=== PATIENT | female | born 1955 | race African-American/Black ===

== ENCOUNTER 2020-01-19 18:36 | Inpatient (IN) ==
[2020-01-19] MEDS ORDERED: DEXTROSE 50% 25 GM/50 ML VIAL IV PRN (21:19)
[2020-01-19] MEDS ORDERED: ONDANSETRON 4 MG/2 ML VIAL IV PRN (21:19)
[2020-01-19] MEDS ORDERED: GLUCAGON 1 MG VIAL IM PRN ×2 (21:19)
[2020-01-19] MEDS ORDERED: DEXTROSE 50% 25 GM/50 ML SYRINGE IV PRN (21:19)
[2020-01-19 22:15] LABS: ABG Base Excess -2.4 MMOL/L (-2.5-2.5); ABG HCO3 22.2 MMOL/L (20-26); ABG Oxygen Saturation 84.2 % (95-100); ABG PCO2 31.8 MM HG (35-48); ABG PH 7.429 (7.35-7.45); ABG PO2 48.7 MM HG (80-95); ABG TCO2 18.7 MMOL/L (23-27); Allen Test Positive
[2020-01-20 01:08] LABS: Basophils % 0.1 % (0.0-0.8); Hematocrit 33.5 VOL% (35.7-47.0); Hemoglobin 11.5 GM/DL (12.0-16.0); Immature Granulocytes % 0.7 %; Immature Granulocytes Absolute 0.05 #; Lymphocytes # 0.7 10*3/uL (1.4-4.0); Lymphocytes % 9.5 % (21.3-54.2); Mean Corpuscular HGB Conc 34.3 GM/DL (32-36); Mean Corpuscular Volume 86.8 FL (87-102); Mean Platelet Volume 11.2 FL (9.6-12.0); Monocytes % 2.5 % (1.7-12.7); Neutrophils % 87.2 % (38.7-73.9); Platelet Count 258 T/CUMM (130-400); Red Blood Count 3.86 MC/CUMM (3.8-5.5); Red Cell Distribution Width 12.9 % (9.3-17.3); White Blood Count 7.3 T/CUMM (4-12)
[2020-01-20 01:20] LABS: Alanine Aminotransferase 21 U/L (13-56); Albumin 2.7 G/DL (3.4-5.0); Alkaline Phosphatase 57 U/L (45-117); Aspartate Amino Transferase 36 U/L (0-37); Bilirubin,Total < 0.39 MG/DL (0.2-1.0); Blood Urea Nitrogen 23 MG/DL (7-18); Calcium 8.6 MG/DL (8.5-10.1); Estimated Glom Filtration Rate 37 ML/MIN; Glucose 334 MG/DL (74-106); Osmolality,Calculated 286.1 MOS/KG (273-304); Total Protein 7.9 G/DL (6.4-8.3)
[2020-01-20] MEDS: PIPERACILLIN/TAZOBACTAM 3,375 MG in SODIUM CHLORIDE 0.9% 100 ML IV SCH ×3 (01:21→16:05)
[2020-01-20] MEDS: PANTOPRAZOLE 40 MG VIAL IV SCH ×2 (01:21→21:31)
[2020-01-20] MEDS: SODIUM CHLORIDE 0.9% 1,000 ML IV SCH ×3 (01:21→17:09)
[2020-01-20] MEDS: INSULIN REGULAR 100 UNIT/ML SUBCUT SCH ×4 (03:20→17:59)
[2020-01-20 07:58] LABS: ABG Base Excess 0.6 MMOL/L (-2.5-2.5); ABG HCO3 23.9 MMOL/L (20-26); ABG Oxygen Saturation 39.9 % (95-100); ABG PH 7.416 (7.35-7.45); ABG TCO2 22.6 MMOL/L (23-27)
[2020-01-20] MEDS: ENOXAPARIN 40 MG/0.4 ML SYRINGE SUBCUT SCH (08:00)
[2020-01-20] MEDS ORDERED: LEVOFLOXACIN INJ 750 MG in PREMIX 1 EACH IV SCH (08:00)
[2020-01-20 08:03] LABS: ABG PO2 23.8 MM HG (80-95)
[2020-01-20 08:32] LABS: Alanine Aminotransferase 20 U/L (13-56); Albumin 2.6 G/DL (3.4-5.0); Alkaline Phosphatase 53 U/L (45-117); Aspartate Amino Transferase 41 U/L (0-37); Bilirubin,Total < 0.39 MG/DL (0.2-1.0); Blood Urea Nitrogen 18 MG/DL (7-18); Calcium 8.4 MG/DL (8.5-10.1); Estimated Glom Filtration Rate 44 ML/MIN; Glucose 214 MG/DL (74-106); Osmolality,Calculated 282.7 MOS/KG (273-304)
[2020-01-20 09:17] LABS: ABG Base Excess -3.2 MMOL/L (-2.5-2.5); ABG HCO3 21.7 MMOL/L (20-26); ABG Oxygen Saturation 95.7 % (95-100); ABG PCO2 46.4 MM HG (35-48); ABG PH 7.309 (7.35-7.45); ABG PO2 88.6 MM HG (80-95); ABG TCO2 20.9 MMOL/L (23-27)
[2020-01-20] MEDS: ZINC SULFATE 220 MG CAPSULE PER TUBE SCH (10:00)
[2020-01-20] MEDS: HYDROXYCHLOROQUINE 200 MG TABLET PER TUBE SCH ×2 (10:00→21:32)
[2020-01-20] MEDS ORDERED: propofoL 200 MG/20 ML VIAL IV ONE (10:29)
[2020-01-20] MEDS ORDERED: SUCCINYLCHOLINE 200 MG/10 ML VIAL ONE (10:29)
[2020-01-20] MEDS ORDERED: VECURONIUM 10 MG VIAL IV ONE (10:29)
[2020-01-20 11:11] LABS: Basophils % 0.1 % (0.0-0.8); Hematocrit 32.4 VOL% (35.7-47.0); Hemoglobin 10.8 GM/DL (12.0-16.0); Immature Granulocytes % 1.3 %; Immature Granulocytes Absolute 0.15 #; Lymphocytes # 0.6 10*3/uL (1.4-4.0); Lymphocytes % 5.4 % (21.3-54.2); Mean Corpuscular HGB Conc 33.3 GM/DL (32-36); Mean Corpuscular Volume 88.5 FL (87-102); Mean Platelet Volume 10.8 FL (9.6-12.0); Monocytes % 1.4 % (1.7-12.7); Neutrophils % 91.8 % (38.7-73.9); Platelet Count 279 T/CUMM (130-400); Red Blood Count 3.66 MC/CUMM (3.8-5.5); White Blood Count 11.4 T/CUMM (4-12)
[2020-01-20] MEDS: AZITHROMYCIN INJ 500 MG in SODIUM CHLORIDE 0.9% 250 ML IV SCH (11:35)
[2020-01-20 11:40] LABS: Band Neutrophils 2 % (0-10); Lymphocytes 3 % (20-55); Platelet Estimate Adequate; Segmented Neutrophils 94 % (50-85); Total Cells Counted 100
[2020-01-20 11:41] LABS: Hypochromasia Slight
[2020-01-20] MEDS: CISATRACURIUM 200 MG in SODIUM CHLORIDE 0.9% 180 ML IV SCH (12:26)
[2020-01-20] MEDS: METOPROLOL TARTRATE 25 MG TABLET PER TUBE SCH ×2 (12:26→21:31)
[2020-01-20] MEDS: lisinopriL 10 MG TABLET PER TUBE SCH (12:26)
[2020-01-20] MEDS: fentaNYL INJ 1,250 MCG in SODIUM CHLORIDE 0.9% 225 ML IV PRN (12:27)
[2020-01-20 15:01] LABS: Apearance,Urine CLEAR (Clear); Bacteria,Urine Occasional /HPF (Few); Bilirubin,Urine Negative (Negative); Blood, Urine Moderate mg/dL (Negative); Glucose,Urine (UA) >=500 mg/dL (Negative); Ketones,Urine 5 mg/dL (Negative); Mucus,Urine Occasional /LPF (Occasional); Nitrite,Urine Negative (Negative); Protein,Urine 30 MG/DL; RBC,Urine 13 /HPF (0-4); Squamous Epithelial Cell,Urine Occasional /HPF (0-10); Urine Color Yellow (Yellow); Urine Specific Gravity 1.014 (1.001-1.035); Urine Urobilinogen < 2.0 EU/DL (0.2-1.0); WBC,Urine 2 /HPF (0-6)
[2020-01-21] MEDS: PIPERACILLIN/TAZOBACTAM 3,375 MG in SODIUM CHLORIDE 0.9% 100 ML IV SCH ×3 (00:04→17:21)
[2020-01-21] MEDS: INSULIN REGULAR 100 UNIT/ML SUBCUT SCH ×4 (00:10→17:22)
[2020-01-21 03:45] LABS: Basophils % 0.1 % (0.0-0.8); Hematocrit 29.6 VOL% (35.7-47.0); Hemoglobin 9.7 GM/DL (12.0-16.0); Immature Granulocytes % 2.2 %; Immature Granulocytes Absolute 0.33 #; Lymphocytes # 1.1 10*3/uL (1.4-4.0); Mean Corpuscular HGB Conc 32.8 GM/DL (32-36); Mean Corpuscular Volume 89.4 FL (87-102); Mean Platelet Volume 10.3 FL (9.6-12.0); Monocytes % 1.4 % (1.7-12.7); Neutrophils % 89.3 % (38.7-73.9); Platelet Count 267 T/CUMM (130-400); Red Blood Count 3.31 MC/CUMM (3.8-5.5); Red Cell Distribution Width 13.3 % (9.3-17.3); White Blood Count 15.2 T/CUMM (4-12)
[2020-01-21 04:05] LABS: Band Neutrophils 13 % (0-10); Lymphocytes 8 % (20-55); Segmented Neutrophils 77 % (50-85)
[2020-01-21 04:06] LABS: Platelet Estimate Normal; Total Cells Counted 100
[2020-01-21 04:07] LABS: Calcium 7.4 MG/DL (8.5-10.1); Osmolality,Calculated 283.3 MOS/KG (273-304)
[2020-01-21 05:27] LABS: ABG Base Excess -3.7 MMOL/L (-2.5-2.5); ABG HCO3 21.2 MMOL/L (20-26); ABG Oxygen Saturation 87.7 % (95-100); ABG PCO2 37.2 MM HG (35-48); ABG PH 7.364 (7.35-7.45); ABG PO2 54.8 MM HG (80-95); ABG TCO2 19.1 MMOL/L (23-27); Allen Test Positive; Pt O2 Delivery Device Ventilator
[2020-01-21] MEDS: SODIUM CHLORIDE 0.9% 1,000 ML IV SCH ×3 (06:01→21:10)
[2020-01-21] MEDS: fentaNYL INJ 1,250 MCG in SODIUM CHLORIDE 0.9% 225 ML IV PRN ×2 (06:10→22:14)
[2020-01-21] MEDS: lisinopriL 10 MG TABLET PER TUBE SCH (08:18)
[2020-01-21] MEDS: METOPROLOL TARTRATE 25 MG TABLET PER TUBE SCH ×2 (08:18→22:15)
[2020-01-21] MEDS: HYDROXYCHLOROQUINE 200 MG TABLET PER TUBE SCH ×2 (08:19→22:15)
[2020-01-21] MEDS: ENOXAPARIN 40 MG/0.4 ML SYRINGE SUBCUT SCH (08:19)
[2020-01-21] MEDS: CISATRACURIUM 200 MG in SODIUM CHLORIDE 0.9% 180 ML IV SCH (12:05)
[2020-01-21] MEDS: AZITHROMYCIN INJ 500 MG in SODIUM CHLORIDE 0.9% 250 ML IV SCH (12:50)
[2020-01-21] MEDS ORDERED: POTASSIUM CHLORIDE RIDER 10 MEQ in PREMIX 1 EACH IV PRN (19:55)
[2020-01-21] MEDS ORDERED: MAGNESIUM SULF RIDER 4 GM in PREMIX 1 EACH IV PRN (19:56)
[2020-01-21] MEDS ORDERED: MAGNESIUM SULF RIDER 2 GM in PREMIX 1 EACH IV PRN (19:56)
[2020-01-21] MEDS: POTASSIUM CHLORIDE RIDER 20 MEQ in PREMIX 1 EACH IV PRN ×2 (21:45→23:50)
[2020-01-21] MEDS: PANTOPRAZOLE 40 MG VIAL IV SCH (22:14)
[2020-01-22] MEDS: INSULIN REGULAR 100 UNIT/ML SUBCUT SCH ×4 (02:06→18:43)
[2020-01-22] MEDS: PIPERACILLIN/TAZOBACTAM 3,375 MG in SODIUM CHLORIDE 0.9% 100 ML IV SCH ×3 (02:08→15:15)
[2020-01-22] MEDS: CISATRACURIUM 200 MG in SODIUM CHLORIDE 0.9% 180 ML IV SCH ×3 (04:20→12:56)
[2020-01-22 04:57] LABS: ABG Base Excess -6.6 MMOL/L (-2.5-2.5); ABG Oxygen Saturation 92.8 % (95-100); ABG PCO2 45.3 MM HG (35-48); ABG PH 7.262 (7.35-7.45); ABG PO2 69.6 MM HG (80-95); ABG TCO2 18.8 MMOL/L (23-27); Allen Test Positive; Pt O2 Delivery Device Ventilator
[2020-01-22 06:04] LABS: Basophils % 0.2 % (0.0-0.8); Eosinophils % 0.1 % (0.00-10.9); Hematocrit 31.2 VOL% (35.7-47.0); Hemoglobin 10.1 GM/DL (12.0-16.0); Immature Granulocytes % 1.9 %; Immature Granulocytes Absolute 0.34 #; Lymphocytes % 5.7 % (21.3-54.2); Mean Corpuscular HGB Conc 32.4 GM/DL (32-36); Mean Platelet Volume 10.6 FL (9.6-12.0); Monocytes % 1.5 % (1.7-12.7); Neutrophils % 90.6 % (38.7-73.9); Platelet Count 291 T/CUMM (130-400); Red Blood Count 3.43 MC/CUMM (3.8-5.5); Red Cell Distribution Width 14.4 % (9.3-17.3); White Blood Count 18.2 T/CUMM (4-12)
[2020-01-22] MEDS: SODIUM CHLORIDE 0.9% 1,000 ML IV SCH (06:04)
[2020-01-22 06:23] LABS: Calcium 7.7 MG/DL (8.5-10.1); Osmolality,Calculated 284.4 MOS/KG (273-304)
[2020-01-22] MEDS: fentaNYL INJ 1,250 MCG in SODIUM CHLORIDE 0.9% 225 ML IV PRN ×2 (07:06→16:15)
[2020-01-22] MEDS: ENOXAPARIN 40 MG/0.4 ML SYRINGE SUBCUT SCH (07:08)
[2020-01-22 08:31] LABS: Band Neutrophils 4 % (0-10); Lymphocytes 6 % (20-55); Metamyelocytes 1 %; Segmented Neutrophils 87 % (50-85); Total Cells Counted 100
[2020-01-22 08:32] LABS: Burr Cells 1+; Hypochromasia Slight; Platelet Estimate Normal; Polychromasia Slight
[2020-01-22] MEDS: METOPROLOL TARTRATE 25 MG TABLET PER TUBE SCH (08:33)
[2020-01-22] MEDS: ZINC SULFATE 220 MG CAPSULE PER TUBE SCH (08:34)
[2020-01-22] MEDS: HYDROXYCHLOROQUINE 200 MG TABLET PER TUBE SCH ×2 (08:34→20:34)
[2020-01-22] MEDS ORDERED: DEXTROSE 50% 25 GM/50 ML VIAL IV PRN (11:25)
[2020-01-22] MEDS ORDERED: GLUCAGON 1 MG VIAL IM PRN (11:25)
[2020-01-22] MEDS: AZITHROMYCIN INJ 500 MG in SODIUM CHLORIDE 0.9% 250 ML IV SCH (12:28)
[2020-01-22] MEDS: VANCOMYCIN INJ 1,250 MG in SODIUM CHLORIDE 0.9% 250 ML IV SCH (14:17)
[2020-01-22] MEDS: methylPREDNISolone SOD SUC 40 MG/1 ML VIAL IV SCH (14:17)
[2020-01-22] MEDS ORDERED: METOPROLOL TARTRATE 5 MG/5 ML VIAL IV ONE (15:09)
[2020-01-22] MEDS: METOPROLOL TARTRATE 50 MG TABLET PER TUBE SCH (20:33)
[2020-01-22] MEDS: PANTOPRAZOLE 40 MG VIAL IV SCH (20:34)
[2020-01-23] MEDS: PIPERACILLIN/TAZOBACTAM 3,375 MG in SODIUM CHLORIDE 0.9% 100 ML IV SCH ×4 (00:25→23:11)
[2020-01-23] MEDS: INSULIN REGULAR 100 UNIT/ML SUBCUT SCH ×4 (00:35→18:08)
[2020-01-23] MEDS: fentaNYL INJ 1,250 MCG in SODIUM CHLORIDE 0.9% 225 ML IV PRN ×3 (01:06→16:49)
[2020-01-23] MEDS: methylPREDNISolone SOD SUC 40 MG/1 ML VIAL IV SCH ×2 (01:12→14:32)
[2020-01-23 05:35] LABS: ABG Base Excess -7.2 MMOL/L (-2.5-2.5); ABG HCO3 18.6 MMOL/L (20-26); ABG Oxygen Saturation 98.3 % (95-100); ABG PCO2 57.4 MM HG (35-48); ABG TCO2 20.1 MMOL/L (23-27)
[2020-01-23 05:37] LABS: ABG PH 7.189 (7.35-7.45)
[2020-01-23] MEDS: CISATRACURIUM 200 MG in SODIUM CHLORIDE 0.9% 180 ML IV SCH ×2 (05:50→12:54)
[2020-01-23 06:07] LABS: Basophils % 0.2 % (0.0-0.8); Hematocrit 30.2 VOL% (35.7-47.0); Hemoglobin 9.7 GM/DL (12.0-16.0); Immature Granulocytes % 2.7 %; Immature Granulocytes Absolute 0.36 #; Lymphocytes # 0.5 10*3/uL (1.4-4.0); Lymphocytes % 3.6 % (21.3-54.2); Mean Corpuscular HGB Conc 32.1 GM/DL (32-36); Mean Corpuscular Volume 92.1 FL (87-102); Mean Platelet Volume 10.1 FL (9.6-12.0); Monocytes % 1.4 % (1.7-12.7); Neutrophils % 92.1 % (38.7-73.9); Platelet Count 231 T/CUMM (130-400); Red Blood Count 3.28 MC/CUMM (3.8-5.5); White Blood Count 13.2 T/CUMM (4-12)
[2020-01-23 06:17] LABS: Calcium 7.6 MG/DL (8.5-10.1)
[2020-01-23] MEDS: VANCOMYCIN INJ 1,250 MG in SODIUM CHLORIDE 0.9% 250 ML IV SCH (06:35)
[2020-01-23] MEDS: ENOXAPARIN 40 MG/0.4 ML SYRINGE SUBCUT SCH (07:05)
[2020-01-23 08:13] LABS: Band Neutrophils 4 % (0-10); Lymphocytes 1 % (20-55); Nucleated Red Blood Cells 1 (0-5); Ovalocytes Few; Segmented Neutrophils 94 % (50-85); Total Cells Counted 100
[2020-01-23 08:14] LABS: Platelet Estimate Normal; Polychromasia Few
[2020-01-23] MEDS: HYDROXYCHLOROQUINE 200 MG TABLET PER TUBE SCH ×2 (08:35→20:13)
[2020-01-23] MEDS: METOPROLOL TARTRATE 50 MG TABLET PER TUBE SCH ×2 (08:35→20:13)
[2020-01-23] MEDS ORDERED: SODIUM BICARBONATE 50 MEQ/50 ML VIAL IV ONE ×2 (09:14→09:16)
[2020-01-23] MEDS: AZITHROMYCIN INJ 500 MG in SODIUM CHLORIDE 0.9% 250 ML IV SCH (14:32)
[2020-01-23] MEDS: INSULIN GLARGINE 100 UNIT/ML SUBCUT SCH ×2 (18:07→20:13)
[2020-01-23] MEDS: POTASSIUM CHLORIDE RIDER 20 MEQ in PREMIX 1 EACH IV PRN (20:16)
[2020-01-23] MEDS: PANTOPRAZOLE 40 MG VIAL IV SCH (22:55)
[2020-01-24] MEDS: methylPREDNISolone SOD SUC 40 MG/1 ML VIAL IV SCH ×3 (00:04→16:46)
[2020-01-24] MEDS: fentaNYL INJ 1,250 MCG in SODIUM CHLORIDE 0.9% 225 ML IV PRN ×3 (00:28→20:20)
[2020-01-24] MEDS: INSULIN REGULAR 100 UNIT/ML SUBCUT SCH ×4 (00:29→17:49)
[2020-01-24 03:58] LABS: ABG Base Excess -4.1 MMOL/L (-2.5-2.5); ABG PCO2 49.8 MM HG (35-48); ABG PH 7.278 (7.35-7.45); ABG PO2 78.3 MM HG (80-95); ABG TCO2 20.6 MMOL/L (23-27); Allen Test Positive; Pt O2 Delivery Device Ventilator
[2020-01-24 04:35] LABS: Calcium 7.4 MG/DL (8.5-10.1); Osmolality,Calculated 317.1 MOS/KG (273-304)
[2020-01-24 04:45] LABS: Prealbumin 4.8 MG/DL (20-40)
[2020-01-24] MEDS: VANCOMYCIN INJ 1,250 MG in SODIUM CHLORIDE 0.9% 250 ML IV SCH (04:46)
[2020-01-24] MEDS: PIPERACILLIN/TAZOBACTAM 3,375 MG in SODIUM CHLORIDE 0.9% 100 ML IV SCH ×2 (07:19→16:46)
[2020-01-24] MEDS: ENOXAPARIN 40 MG/0.4 ML SYRINGE SUBCUT SCH (07:19)
[2020-01-24] MEDS ORDERED: POTASSIUM CHLORIDE 20 MEQ/15 ML UDCUP PER TUBE SCH ×2 (07:30→10:00)
[2020-01-24] MEDS: POTASSIUM CHLORIDE RIDER 20 MEQ in PREMIX 1 EACH IV PRN (07:43)
[2020-01-24] MEDS: CISATRACURIUM 200 MG in SODIUM CHLORIDE 0.9% 180 ML IV SCH ×2 (07:43→15:14)
[2020-01-24] MEDS ORDERED: POTASSIUM PHOSPHATE 30 MMOL in SODIUM CHLORIDE 0.9% 250 ML IV ONE (09:00)
[2020-01-24] MEDS: HYDROXYCHLOROQUINE 200 MG TABLET PER TUBE SCH ×2 (09:27→21:57)
[2020-01-24] MEDS: METOPROLOL TARTRATE 50 MG TABLET PER TUBE SCH ×2 (09:27→21:57)
[2020-01-24] MEDS: INSULIN GLARGINE 100 UNIT/ML SUBCUT SCH ×2 (09:27→21:58)
[2020-01-24] MEDS: ZINC SULFATE 220 MG CAPSULE PER TUBE SCH (09:27)
[2020-01-24] MEDS: AZITHROMYCIN INJ 500 MG in SODIUM CHLORIDE 0.9% 250 ML IV SCH (11:47)
[2020-01-24] MEDS ORDERED: FUROSEMIDE 40 MG/4 ML VIAL IV ONE (17:00)
[2020-01-24] MEDS: PANTOPRAZOLE 40 MG VIAL IV SCH (21:57)
[2020-01-25] MEDS: methylPREDNISolone SOD SUC 40 MG/1 ML VIAL IV SCH ×4 (00:09→22:22)
[2020-01-25] MEDS: PIPERACILLIN/TAZOBACTAM 3,375 MG in SODIUM CHLORIDE 0.9% 100 ML IV SCH ×3 (00:10→18:25)
[2020-01-25] MEDS: INSULIN REGULAR 100 UNIT/ML SUBCUT SCH ×4 (01:51→18:24)
[2020-01-25 05:31] LABS: ABG Base Excess -3.6 MMOL/L (-2.5-2.5); ABG HCO3 21.5 MMOL/L (20-26); ABG Oxygen Saturation 99.2 % (95-100); ABG PCO2 40.6 MM HG (35-48); ABG PH 7.341 (7.35-7.45)
[2020-01-25 06:01] LABS: Basophils # 0.1 10*3/uL (0.0-0.2); Basophils % 0.5 % (0.0-0.8); Hematocrit 31.9 VOL% (35.7-47.0); Hemoglobin 10.6 GM/DL (12.0-16.0); Immature Granulocytes % 9.1 %; Immature Granulocytes Absolute 1.59 #; Lymphocytes # 1.2 10*3/uL (1.4-4.0); Lymphocytes % 6.7 % (21.3-54.2); Mean Corpuscular HGB Conc 33.2 GM/DL (32-36); Mean Corpuscular Volume 87.9 FL (87-102); Mean Platelet Volume 11.8 FL (9.6-12.0); Monocytes % 1.6 % (1.7-12.7); Neutrophils % 82.1 % (38.7-73.9); Platelet Count 123 T/CUMM (130-400); Red Blood Count 3.63 MC/CUMM (3.8-5.5); Red Cell Distribution Width 15.1 % (9.3-17.3); White Blood Count 17.6 T/CUMM (4-12)
[2020-01-25 06:24] LABS: Band Neutrophils 9 % (0-10); Lymphocytes 9 % (20-55); Metamyelocytes 1 %; Myelocytes 1 %; Nucleated Red Blood Cells 7 (0-5); Promyelocytes 1 %; Segmented Neutrophils 79 % (50-85); Total Cells Counted 100
[2020-01-25 06:25] LABS: Hypochromasia 1+; Microcytosis Slight; Target Cells Slight
[2020-01-25 06:26] LABS: Platelet Estimate Adequate
[2020-01-25 06:31] LABS: Calcium 7.5 MG/DL (8.5-10.1); Osmolality,Calculated 325.6 MOS/KG (273-304)
[2020-01-25] MEDS: ENOXAPARIN 40 MG/0.4 ML SYRINGE SUBCUT SCH (07:01)
[2020-01-25] MEDS: INSULIN GLARGINE 100 UNIT/ML SUBCUT SCH ×2 (08:39→22:21)
[2020-01-25] MEDS: fentaNYL INJ 1,250 MCG in SODIUM CHLORIDE 0.9% 225 ML IV PRN ×2 (08:40→21:44)
[2020-01-25] MEDS: CISATRACURIUM 200 MG in SODIUM CHLORIDE 0.9% 180 ML IV SCH ×2 (08:40→12:07)
[2020-01-25] MEDS: METOPROLOL TARTRATE 50 MG TABLET PER TUBE SCH ×3 (08:44→22:23)
[2020-01-25] MEDS: ENOXAPARIN 30 MG/0.3 ML SYRINGE SUBCUT SCH (10:07)
[2020-01-25] MEDS: PANTOPRAZOLE 40 MG VIAL IV SCH (22:23)
[2020-01-26] MEDS: INSULIN REGULAR 100 UNIT/ML SUBCUT SCH ×4 (01:19→18:36)
[2020-01-26 04:17] LABS: ABG HCO3 21.8 MMOL/L (20-26); ABG Oxygen Saturation 93.1 % (95-100); ABG PH 7.333 (7.35-7.45); ABG TCO2 20.7 MMOL/L (23-27)
[2020-01-26 04:27] LABS: Basophils # 0.1 10*3/uL (0.0-0.2); Basophils % 0.6 % (0.0-0.8); Hematocrit 32.1 VOL% (35.7-47.0); Hemoglobin 10.5 GM/DL (12.0-16.0); Immature Granulocytes % 15.2 %; Immature Granulocytes Absolute 3.06 #; Lymphocytes # 1.8 10*3/uL (1.4-4.0); Lymphocytes % 9.1 % (21.3-54.2); Mean Corpuscular HGB Conc 32.7 GM/DL (32-36); Mean Corpuscular Volume 87.7 FL (87-102); Mean Platelet Volume 12.1 FL (9.6-12.0); Monocytes % 1.1 % (1.7-12.7); NRBC # 0.56 10*3/uL; Platelet Count 131 T/CUMM (130-400); Red Blood Count 3.66 MC/CUMM (3.8-5.5); Red Cell Distribution Width 15.6 % (9.3-17.3); White Blood Count 20.1 T/CUMM (4-12)
[2020-01-26 04:36] LABS: Calcium 7.6 MG/DL (8.5-10.1); Osmolality,Calculated 332.3 MOS/KG (273-304)
[2020-01-26] MEDS ORDERED: hydrALAZINE 20 MG/1 ML VIAL IV PRN (04:47)
[2020-01-26 04:55] LABS: Band Neutrophils 5 % (0-10); Lymphocytes 8 % (20-55); Metamyelocytes 1 %; Myelocytes 1 %; Nucleated Red Blood Cells 5 (0-5); Segmented Neutrophils 85 % (50-85); Total Cells Counted 100
[2020-01-26 04:56] LABS: Hypochromasia Slight; Microcytosis Slight
[2020-01-26] MEDS ORDERED: METOPROLOL TARTRATE 5 MG/5 ML VIAL IV ONE ×2 (05:39→06:10)
[2020-01-26] MEDS: fentaNYL INJ 1,250 MCG in SODIUM CHLORIDE 0.9% 225 ML IV PRN ×3 (06:55→22:08)
[2020-01-26] MEDS: PIPERACILLIN/TAZOBACTAM 3,375 MG in SODIUM CHLORIDE 0.9% 100 ML IV SCH ×2 (07:48→18:37)
[2020-01-26] MEDS: methylPREDNISolone SOD SUC 40 MG/1 ML VIAL IV SCH ×3 (08:46→20:55)
[2020-01-26] MEDS: INSULIN GLARGINE 100 UNIT/ML SUBCUT SCH ×3 (08:47→20:55)
[2020-01-26] MEDS: METOPROLOL TARTRATE 50 MG TABLET PER TUBE SCH ×2 (08:47→20:55)
[2020-01-26] MEDS: ENOXAPARIN 30 MG/0.3 ML SYRINGE SUBCUT SCH (08:47)
[2020-01-26] MEDS ORDERED: DEXTROSE 5% 1,000 ML IV SCH (09:30)
[2020-01-26] MEDS: CISATRACURIUM 200 MG in SODIUM CHLORIDE 0.9% 180 ML IV SCH (18:35)
[2020-01-26] MEDS: PANTOPRAZOLE 40 MG VIAL IV SCH (20:50)
[2020-01-27] MEDS: INSULIN REGULAR 100 UNIT/ML SUBCUT SCH ×4 (00:21→18:52)
[2020-01-27 04:31] LABS: Basophils # 0.1 10*3/uL (0.0-0.2); Basophils % 0.4 % (0.0-0.8); Eosinophils # 0.1 10*3/uL (0.0-0.87); Eosinophils % 0.3 % (0.00-10.9); Hematocrit 25.7 VOL% (35.7-47.0); Hemoglobin 8.5 GM/DL (12.0-16.0); Immature Granulocytes % 14.5 %; Immature Granulocytes Absolute 2.49 #; Lymphocytes # 1.5 10*3/uL (1.4-4.0); Lymphocytes % 8.6 % (21.3-54.2); Mean Corpuscular HGB Conc 33.1 GM/DL (32-36); Mean Corpuscular Volume 87.7 FL (87-102); Monocytes % 1.6 % (1.7-12.7); Neutrophils % 74.6 % (38.7-73.9); Platelet Count 88 T/CUMM (130-400); Red Blood Count 2.93 MC/CUMM (3.8-5.5); Red Cell Distribution Width 15.8 % (9.3-17.3); White Blood Count 17.2 T/CUMM (4-12)
[2020-01-27 04:48] LABS: ABG Base Excess -1.7 MMOL/L (-2.5-2.5); ABG Oxygen Saturation 98.7 % (95-100); ABG PCO2 27.7 MM HG (35-48); ABG TCO2 18.4 MMOL/L (23-27); Allen Test Positive; Calcium 7.4 MG/DL (8.5-10.1); Osmolality,Calculated 327.9 MOS/KG (273-304); Pt O2 Delivery Device Ventilator
[2020-01-27 04:57] LABS: Band Neutrophils 6 % (0-10); Hypochromasia 2+; Lymphocytes 7 % (20-55); Nucleated Red Blood Cells 3 (0-5); Ovalocytes Slight; Platelet Estimate Decreased; Segmented Neutrophils 86 % (50-85); Total Cells Counted 100
[2020-01-27 04:58] LABS: Microcytosis Slight
[2020-01-27 05:08] LABS: Prealbumin 15.3 MG/DL (20-40)
[2020-01-27] MEDS: fentaNYL INJ 1,250 MCG in SODIUM CHLORIDE 0.9% 225 ML IV PRN ×3 (05:39→20:30)
[2020-01-27] MEDS: PIPERACILLIN/TAZOBACTAM 3,375 MG in SODIUM CHLORIDE 0.9% 100 ML IV SCH (06:03)
[2020-01-27] MEDS ORDERED: LEVOFLOXACIN INJ 750 MG in PREMIX 1 EACH IV ONE (09:00)
[2020-01-27] MEDS: methylPREDNISolone SOD SUC 40 MG/1 ML VIAL IV SCH ×2 (09:49→20:36)
[2020-01-27] MEDS: METOPROLOL TARTRATE 50 MG TABLET PER TUBE SCH ×2 (09:50→20:37)
[2020-01-27] MEDS: LEVOFLOXACIN INJ 750 MG in PREMIX 1 EACH IV SCH (09:50)
[2020-01-27] MEDS: INSULIN GLARGINE 100 UNIT/ML SUBCUT SCH ×2 (09:50→20:37)
[2020-01-27] MEDS: ENOXAPARIN 30 MG/0.3 ML SYRINGE SUBCUT SCH (12:32)
[2020-01-27] MEDS: CISATRACURIUM 200 MG in SODIUM CHLORIDE 0.9% 180 ML IV SCH (13:41)
[2020-01-27] MEDS: PANTOPRAZOLE 40 MG VIAL IV SCH (20:30)
[2020-01-28] MEDS: INSULIN REGULAR 100 UNIT/ML SUBCUT SCH ×4 (00:40→18:05)
[2020-01-28] MEDS: fentaNYL INJ 1,250 MCG in SODIUM CHLORIDE 0.9% 225 ML IV PRN ×3 (03:57→18:00)
[2020-01-28 04:31] LABS: ABG Base Excess -1.4 MMOL/L (-2.5-2.5); ABG HCO3 23.3 MMOL/L (20-26); ABG Oxygen Saturation 98.9 % (95-100); ABG PH 7.551 (7.35-7.45); ABG TCO2 18.9 MMOL/L (23-27); Allen Test Positive; Pt O2 Delivery Device Ventilator
[2020-01-28 05:29] LABS: Basophils # 0.1 10*3/uL (0.0-0.2); Basophils % 0.4 % (0.0-0.8); Eosinophils % 0.2 % (0.00-10.9); Hematocrit 24.2 VOL% (35.7-47.0); Immature Granulocytes % 15.7 %; Immature Granulocytes Absolute 2.54 #; Lymphocytes # 1.7 10*3/uL (1.4-4.0); Lymphocytes % 10.6 % (21.3-54.2); Mean Corpuscular HGB Conc 33.1 GM/DL (32-36); Mean Corpuscular Volume 87.7 FL (87-102); Monocytes % 1.5 % (1.7-12.7); NRBC # 0.42 10*3/uL; Neutrophils % 71.6 % (38.7-73.9); Platelet Count 96 T/CUMM (130-400); Red Blood Count 2.76 MC/CUMM (3.8-5.5); Red Cell Distribution Width 15.3 % (9.3-17.3); White Blood Count 16.2 T/CUMM (4-12)
[2020-01-28 05:44] LABS: Calcium 7.6 MG/DL (8.5-10.1); Osmolality,Calculated 312.1 MOS/KG (273-304)
[2020-01-28 06:10] LABS: Atypical Lymphocytes Few; Lymphocytes 13 % (20-55); Myelocytes 1 %; Platelet Estimate Decreased; Polychromasia Few; Segmented Neutrophils 83 % (50-85); Total Cells Counted 100
[2020-01-28] MEDS: methylPREDNISolone SOD SUC 40 MG/1 ML VIAL IV SCH ×2 (09:00→21:00)
[2020-01-28] MEDS: METOPROLOL TARTRATE 50 MG TABLET PER TUBE SCH ×2 (09:00→21:07)
[2020-01-28] MEDS: ENOXAPARIN 30 MG/0.3 ML SYRINGE SUBCUT SCH (09:00)
[2020-01-28] MEDS: CISATRACURIUM 200 MG in SODIUM CHLORIDE 0.9% 180 ML IV SCH (16:00)
[2020-01-28] MEDS ORDERED: ROCURONIUM 500 MG in SODIUM CHLORIDE 0.9% 500 ML IV SCH (17:00)
[2020-01-28] MEDS: PANTOPRAZOLE 40 MG VIAL IV SCH (21:06)
[2020-01-28] MEDS: INSULIN GLARGINE 100 UNIT/ML SUBCUT SCH (21:07)
[2020-01-28] MEDS: MINERAL OIL/PETROLATUM OPH OINT 3.5 GM TUBE BOTH EYES SCH (21:08)
[2020-01-29] MEDS: fentaNYL INJ 1,250 MCG in SODIUM CHLORIDE 0.9% 225 ML IV PRN ×5 (00:13→21:03)
[2020-01-29] MEDS: INSULIN REGULAR 100 UNIT/ML SUBCUT SCH ×4 (02:04→15:50)
[2020-01-29 04:01] LABS: ABG Base Excess -2.8 MMOL/L (-2.5-2.5); ABG HCO3 22.1 MMOL/L (20-26); ABG Oxygen Saturation 98.2 % (95-100); ABG PH 7.396 (7.35-7.45); ABG TCO2 19.7 MMOL/L (23-27)
[2020-01-29 04:50] LABS: Calcium 7.7 MG/DL (8.5-10.1); Osmolality,Calculated 310.6 MOS/KG (273-304)
[2020-01-29 04:55] LABS: Ferritin 1259.6 ng/ml (8-252)
[2020-01-29 04:59] LABS: Basophils % 0.3 % (0.0-0.8); Eosinophils % 0.2 % (0.00-10.9); Hematocrit 22.5 VOL% (35.7-47.0); Hemoglobin 7.2 GM/DL (12.0-16.0); INR 1.1; Immature Granulocytes % 13.2 %; Immature Granulocytes Absolute 1.97 #; Lymphocytes # 1.1 10*3/uL (1.4-4.0); Lymphocytes % 7.3 % (21.3-54.2); Mean Corpuscular Volume 90.4 FL (87-102); Mean Platelet Volume 13.9 FL (9.6-12.0); Monocytes % 1.8 % (1.7-12.7); NRBC # 0.19 10*3/uL; Neutrophils % 77.2 % (38.7-73.9); PT Patient Result 11.9 SECS (9.8-11.9); Partial Thromboplastin Time 25.3 SECS (23.9-33.8); Red Blood Count 2.49 MC/CUMM (3.8-5.5); Red Cell Distribution Width 15.9 % (9.3-17.3); White Blood Count 14.9 T/CUMM (4-12)
[2020-01-29 05:01] LABS: Platelet Count 82 T/CUMM (130-400)
[2020-01-29 05:50] LABS: Band Neutrophils 4 % (0-10); Hypochromasia 2+; Lymphocytes 7 % (20-55); Metamyelocytes 4 %; Segmented Neutrophils 83 % (50-85); Total Cells Counted 100
[2020-01-29 05:51] LABS: Platelet Estimate Adequate; Polychromasia Few
[2020-01-29] MEDS: MINERAL OIL/PETROLATUM OPH OINT 3.5 GM TUBE BOTH EYES SCH ×3 (08:50→21:02)
[2020-01-29] MEDS: METOPROLOL TARTRATE 50 MG TABLET PER TUBE SCH ×2 (08:50→21:02)
[2020-01-29] MEDS: methylPREDNISolone SOD SUC 40 MG/1 ML VIAL IV SCH ×2 (09:00→21:00)
[2020-01-29] MEDS: ENOXAPARIN 30 MG/0.3 ML SYRINGE SUBCUT SCH (09:00)
[2020-01-29] MEDS: LEVOFLOXACIN INJ 750 MG in PREMIX 1 EACH IV SCH (10:05)
[2020-01-29] MEDS ORDERED: FUROSEMIDE 40 MG/4 ML VIAL IV ONE (12:38)
[2020-01-29] MEDS: PANTOPRAZOLE 40 MG VIAL IV SCH (20:58)
[2020-01-29] MEDS: INSULIN GLARGINE 100 UNIT/ML SUBCUT SCH (21:02)
[2020-01-30] MEDS: fentaNYL INJ 1,250 MCG in SODIUM CHLORIDE 0.9% 225 ML IV PRN (02:00)
[2020-01-30] MEDS: hydrALAZINE 20 MG/1 ML VIAL IV PRN (03:38)
[2020-01-30] MEDS: INSULIN REGULAR 100 UNIT/ML SUBCUT SCH ×4 (04:11→19:06)
[2020-01-30] MEDS ORDERED: METOPROLOL TARTRATE 5 MG/5 ML VIAL IV ONE (04:46)
[2020-01-30 04:50] LABS: ABG Base Excess -3.4 MMOL/L (-2.5-2.5); ABG HCO3 21.6 MMOL/L (20-26); ABG Oxygen Saturation 98.9 % (95-100); ABG PCO2 61.7 MM HG (35-48); ABG PH 7.217 (7.35-7.45); ABG TCO2 23.7 MMOL/L (23-27); Allen Test Positive; Pt O2 Delivery Device Ventilator
[2020-01-30 06:15] LABS: Basophils # 0.1 10*3/uL (0.0-0.2); Basophils % 0.4 % (0.0-0.8); Eosinophils # 0.1 10*3/uL (0.0-0.87); Eosinophils % 0.3 % (0.00-10.9); Hematocrit 25.9 VOL% (35.7-47.0); Hemoglobin 8.3 GM/DL (12.0-16.0); Immature Granulocytes % 10.8 %; Immature Granulocytes Absolute 2.58 #; Lymphocytes # 1.2 10*3/uL (1.4-4.0); Lymphocytes % 5.2 % (21.3-54.2); Mean Corpuscular Volume 89.9 FL (87-102); Monocytes % 2.7 % (1.7-12.7); NRBC # 0.43 10*3/uL; Neutrophils % 80.6 % (38.7-73.9); Platelet Count 121 T/CUMM (130-400); Red Blood Count 2.88 MC/CUMM (3.8-5.5); Red Cell Distribution Width 16.9 % (9.3-17.3); White Blood Count 23.8 T/CUMM (4-12)
[2020-01-30 06:38] LABS: INR 1.1; PT Patient Result 12.1 SECS (9.8-11.9); Partial Thromboplastin Time 25.2 SECS (23.9-33.8)
[2020-01-30 06:45] LABS: Band Neutrophils 1 % (0-10); Lymphocytes 7 % (20-55); Myelocytes 1 %; Nucleated Red Blood Cells 1 (0-5); Segmented Neutrophils 88 % (50-85)
[2020-01-30 06:47] LABS: Hypochromasia 1+; Platelet Estimate Adequate; Total Cells Counted 100
[2020-01-30 06:59] LABS: Albumin 1.8 G/DL (3.4-5.0); Bilirubin,Direct 0.61 MG/DL (0.0-0.20); Bilirubin,Indirect 0.2 MG/DL (0.0-1.0); Bilirubin,Total 0.8 MG/DL (0.2-1.0); CKMB % 1.4 %; Calcium 7.8 MG/DL (8.5-10.1); Osmolality,Calculated 305.1 MOS/KG (273-304)
[2020-01-30] MEDS: methylPREDNISolone SOD SUC 40 MG/1 ML VIAL IV SCH ×2 (08:50→21:00)
[2020-01-30] MEDS: ENOXAPARIN 30 MG/0.3 ML SYRINGE SUBCUT SCH (08:55)
[2020-01-30] MEDS: MINERAL OIL/PETROLATUM OPH OINT 3.5 GM TUBE BOTH EYES SCH ×3 (08:55→21:03)
[2020-01-30] MEDS: METOPROLOL TARTRATE 50 MG TABLET PER TUBE SCH ×3 (09:20→17:55)
[2020-01-30] MEDS: fentaNYL INJ 2,500 MCG in SODIUM CHLORIDE 0.9% 450 ML IV PRN (09:30)
[2020-01-30 10:14] LABS: ABG Base Excess -1.1 MMOL/L (-2.5-2.5); ABG HCO3 23.4 MMOL/L (20-26); ABG Oxygen Saturation 91.3 % (95-100); ABG PCO2 39.4 MM HG (35-48); ABG PH 7.387 (7.35-7.45); ABG PO2 60.6 MM HG (80-95); ABG TCO2 22.3 MMOL/L (23-27)
[2020-01-30] MEDS: MIDAZOLAM 100 MG in SODIUM CHLORIDE 0.9% 80 ML IV PRN (11:55)
[2020-01-30] MEDS ORDERED: FUROSEMIDE 40 MG/4 ML VIAL IV ONE (12:11)
[2020-01-30] MEDS: fentaNYL 100 MCG/HR PATCH TRANSDERM SCH (15:05)
[2020-01-30] MEDS: INSULIN GLARGINE 100 UNIT/ML SUBCUT SCH (21:03)
[2020-01-30] MEDS: PANTOPRAZOLE 40 MG VIAL IV SCH (21:03)
[2020-01-31] MEDS: INSULIN REGULAR 100 UNIT/ML SUBCUT SCH ×4 (00:19→18:00)
[2020-01-31] MEDS: fentaNYL INJ 2,500 MCG in SODIUM CHLORIDE 0.9% 450 ML IV PRN ×2 (00:20→20:48)
[2020-01-31] MEDS: METOPROLOL TARTRATE 50 MG TABLET PER TUBE SCH ×3 (02:41→16:30)
[2020-01-31 03:24] LABS: Basophils % 0.1 % (0.0-0.8); Eosinophils % 0.2 % (0.00-10.9); Hematocrit 22.2 VOL% (35.7-47.0); Immature Granulocytes % 6.6 %; Immature Granulocytes Absolute 1.09 #; Lymphocytes % 6.1 % (21.3-54.2); Mean Corpuscular HGB Conc 31.5 GM/DL (32-36); Mean Corpuscular Volume 90.6 FL (87-102); Mean Platelet Volume 12.6 FL (9.6-12.0); Monocytes % 2.6 % (1.7-12.7); NRBC # 0.09 10*3/uL; Neutrophils % 84.4 % (38.7-73.9); Platelet Count 119 T/CUMM (130-400); Red Blood Count 2.45 MC/CUMM (3.8-5.5); Red Cell Distribution Width 16.1 % (9.3-17.3); White Blood Count 16.6 T/CUMM (4-12)
[2020-01-31 03:39] LABS: Calcium 7.9 MG/DL (8.5-10.1); Osmolality,Calculated 302.1 MOS/KG (273-304)
[2020-01-31 03:43] LABS: Lymphocytes 3 % (20-55); Segmented Neutrophils 94 % (50-85); Total Cells Counted 100
[2020-01-31 03:44] LABS: Platelet Estimate Decreased; Polychromasia Few
[2020-01-31 03:49] LABS: Prealbumin 27.7 MG/DL (20-40)
[2020-01-31 03:58] LABS: ABG Base Excess 1.7 MMOL/L (-2.5-2.5); ABG HCO3 25.9 MMOL/L (20-26); ABG Oxygen Saturation 96.4 % (95-100); ABG PCO2 33.7 MM HG (35-48); ABG PO2 73.8 MM HG (80-95); ABG TCO2 23.7 MMOL/L (23-27)
[2020-01-31 04:03] LABS: Albumin 1.7 G/DL (3.4-5.0); Bilirubin,Direct 0.27 MG/DL (0.0-0.20); Bilirubin,Indirect 0.6 MG/DL (0.0-1.0); Bilirubin,Total 0.9 MG/DL (0.2-1.0); Ferritin 1336.3 ng/ml (8-252); Total Protein 5.5 G/DL (6.4-8.3)
[2020-01-31] MEDS: ENOXAPARIN 30 MG/0.3 ML SYRINGE SUBCUT SCH (08:35)
[2020-01-31] MEDS: MINERAL OIL/PETROLATUM OPH OINT 3.5 GM TUBE BOTH EYES SCH ×3 (08:35→20:47)
[2020-01-31] MEDS: LEVOFLOXACIN INJ 750 MG in PREMIX 1 EACH IV SCH (08:35)
[2020-01-31] MEDS: methylPREDNISolone SOD SUC 40 MG/1 ML VIAL IV SCH ×2 (08:37→20:46)
[2020-01-31 10:20] LABS: INR 1.1; PT Patient Result 12.2 SECS (9.8-11.9); Partial Thromboplastin Time 27.6 SECS (23.9-33.8)
[2020-01-31] MEDS: MIDAZOLAM 100 MG in SODIUM CHLORIDE 0.9% 80 ML IV PRN (17:59)
[2020-01-31] MEDS: PANTOPRAZOLE 40 MG VIAL IV SCH (20:45)
[2020-01-31] MEDS: INSULIN GLARGINE 100 UNIT/ML SUBCUT SCH (20:46)
[2020-02-01] MEDS: ACETAMINOPHEN 325 MG TABLET PO PRN (00:02)
[2020-02-01] MEDS: INSULIN REGULAR 100 UNIT/ML SUBCUT SCH ×3 (00:04→19:34)
[2020-02-01] MEDS: METOPROLOL TARTRATE 50 MG TABLET PER TUBE SCH ×3 (00:39→18:45)
[2020-02-01 04:13] LABS: ABG Base Excess 0.9 MMOL/L (-2.5-2.5); ABG HCO3 25.2 MMOL/L (20-26); ABG Oxygen Saturation 95.5 % (95-100); ABG PCO2 36.4 MM HG (35-48); ABG PH 7.441 (7.35-7.45); ABG PO2 76.6 MM HG (80-95); ABG TCO2 22.2 MMOL/L (23-27)
[2020-02-01 04:16] LABS: Basophils % 0.1 % (0.0-0.8); Eosinophils % 0.1 % (0.00-10.9); Hematocrit 20.7 VOL% (35.7-47.0); Hemoglobin 6.6 GM/DL (12.0-16.0); Immature Granulocytes % 4.7 %; Immature Granulocytes Absolute 0.82 #; Lymphocytes # 0.7 10*3/uL (1.4-4.0); Lymphocytes % 3.7 % (21.3-54.2); Mean Corpuscular HGB Conc 31.9 GM/DL (32-36); Mean Platelet Volume 11.9 FL (9.6-12.0); Monocytes % 2.8 % (1.7-12.7); NRBC # 0.05 10*3/uL; Neutrophils % 88.6 % (38.7-73.9); Platelet Count 114 T/CUMM (130-400); Red Blood Count 2.25 MC/CUMM (3.8-5.5); Red Cell Distribution Width 15.8 % (9.3-17.3); White Blood Count 17.4 T/CUMM (4-12)
[2020-02-01 04:29] LABS: Calcium 7.9 MG/DL (8.5-10.1); Osmolality,Calculated 300.1 MOS/KG (273-304)
[2020-02-01 04:47] LABS: Band Neutrophils 1 % (0-10); Lymphocytes 5 % (20-55); Myelocytes 1 %; Segmented Neutrophils 92 % (50-85); Total Cells Counted 100
[2020-02-01 04:48] LABS: Hypochromasia 1+; Platelet Estimate Decreased; Stomatocytes Few
[2020-02-01 04:49] LABS: Microcytosis 1+; Polychromasia Few
[2020-02-01] MEDS ORDERED: SODIUM CHLORIDE 0.9% 1,000 ML IV PRN (08:58)
[2020-02-01] MEDS: ENOXAPARIN 30 MG/0.3 ML SYRINGE SUBCUT SCH (09:50)
[2020-02-01] MEDS: MINERAL OIL/PETROLATUM OPH OINT 3.5 GM TUBE BOTH EYES SCH ×3 (09:50→22:02)
[2020-02-01] MEDS: methylPREDNISolone SOD SUC 40 MG/1 ML VIAL IV SCH ×2 (09:52→22:02)
[2020-02-01] MEDS: fentaNYL INJ 2,500 MCG in SODIUM CHLORIDE 0.9% 450 ML IV PRN (19:53)
[2020-02-01] MEDS: INSULIN GLARGINE 100 UNIT/ML SUBCUT SCH (22:01)
[2020-02-01] MEDS: PANTOPRAZOLE 40 MG VIAL IV SCH (22:02)
[2020-02-02] MEDS: INSULIN REGULAR 100 UNIT/ML SUBCUT SCH ×5 (00:30→23:58)
[2020-02-02] MEDS: MIDAZOLAM 100 MG in SODIUM CHLORIDE 0.9% 80 ML IV PRN (00:43)
[2020-02-02] MEDS: METOPROLOL TARTRATE 50 MG TABLET PER TUBE SCH ×3 (02:20→16:45)
[2020-02-02 03:46] LABS: Allen Test Positive; Pt O2 Delivery Device Ventilator
[2020-02-02 03:48] LABS: ABG Base Excess -1.1 MMOL/L (-2.5-2.5); ABG HCO3 23.5 MMOL/L (20-26); ABG Oxygen Saturation 98.6 % (95-100); ABG PCO2 40.9 MM HG (35-48); ABG PH 7.376 (7.35-7.45); ABG TCO2 22.5 MMOL/L (23-27)
[2020-02-02 06:09] LABS: Basophils % 0.2 % (0.0-0.8); Hematocrit 21.9 VOL% (35.7-47.0); Immature Granulocytes % 5.1 %; Immature Granulocytes Absolute 0.56 #; Lymphocytes # 0.7 10*3/uL (1.4-4.0); Lymphocytes % 6.2 % (21.3-54.2); Mean Corpuscular Volume 87.6 FL (87-102); Mean Platelet Volume 12.5 FL (9.6-12.0); Monocytes % 2.8 % (1.7-12.7); NRBC # 0.04 10*3/uL; Neutrophils % 85.7 % (38.7-73.9); Platelet Count 116 T/CUMM (130-400); Red Cell Distribution Width 16.7 % (9.3-17.3); White Blood Count 10.9 T/CUMM (4-12)
[2020-02-02 06:29] LABS: Calcium 7.9 MG/DL (8.5-10.1); Osmolality,Calculated 299.5 MOS/KG (273-304)
[2020-02-02 06:36] LABS: Band Neutrophils 2 % (0-10); Hypochromasia 1+; Lymphocytes 6 % (20-55); Myelocytes 1 %; Segmented Neutrophils 90 % (50-85); Total Cells Counted 100
[2020-02-02 06:37] LABS: Microcytosis 1+; Platelet Estimate Decreased
[2020-02-02] MEDS: ENOXAPARIN 30 MG/0.3 ML SYRINGE SUBCUT SCH (08:13)
[2020-02-02] MEDS: fentaNYL 100 MCG/HR PATCH TRANSDERM SCH (08:13)
[2020-02-02] MEDS: methylPREDNISolone SOD SUC 40 MG/1 ML VIAL IV SCH ×2 (08:13→21:01)
[2020-02-02] MEDS: LEVOFLOXACIN INJ 750 MG in PREMIX 1 EACH IV SCH (08:13)
[2020-02-02] MEDS: MINERAL OIL/PETROLATUM OPH OINT 3.5 GM TUBE BOTH EYES SCH ×3 (08:15→21:01)
[2020-02-02] MEDS: fentaNYL INJ 2,500 MCG in SODIUM CHLORIDE 0.9% 450 ML IV PRN (21:00)
[2020-02-02] MEDS: INSULIN GLARGINE 100 UNIT/ML SUBCUT SCH (21:01)
[2020-02-02] MEDS: PANTOPRAZOLE 40 MG VIAL IV SCH (21:03)
[2020-02-03] MEDS: METOPROLOL TARTRATE 50 MG TABLET PER TUBE SCH ×3 (00:30→17:29)
[2020-02-03 04:16] LABS: ABG Base Excess 0.2 MMOL/L (-2.5-2.5); ABG HCO3 23.6 MMOL/L (20-26); ABG PCO2 34.8 MM HG (35-48); ABG PH 7.449 (7.35-7.45); ABG PO2 139.4 MM HG (80-95); ABG TCO2 24.7 MMOL/L (23-27)
[2020-02-03 04:17] LABS: ABG Oxygen Saturation 98.9 % (95-100)
[2020-02-03 05:29] LABS: Basophils % 0.2 % (0.0-0.8); Eosinophils % 0.1 % (0.00-10.9); Hematocrit 25.4 VOL% (35.7-47.0); Hemoglobin 8.1 GM/DL (12.0-16.0); Immature Granulocytes % 5.6 %; Immature Granulocytes Absolute 0.69 #; Lymphocytes # 0.8 10*3/uL (1.4-4.0); Lymphocytes % 6.4 % (21.3-54.2); Mean Corpuscular HGB Conc 31.9 GM/DL (32-36); Mean Corpuscular Volume 89.1 FL (87-102); Mean Platelet Volume 12.2 FL (9.6-12.0); Monocytes % 4.6 % (1.7-12.7); NRBC # 0.08 10*3/uL; Neutrophils % 83.1 % (38.7-73.9); Platelet Count 168 T/CUMM (130-400); Red Blood Count 2.85 MC/CUMM (3.8-5.5); Red Cell Distribution Width 15.9 % (9.3-17.3); White Blood Count 12.3 T/CUMM (4-12)
[2020-02-03 05:44] LABS: Osmolality,Calculated 291.5 MOS/KG (273-304)
[2020-02-03 05:48] LABS: Prealbumin 27.4 MG/DL (20-40)
[2020-02-03] MEDS: INSULIN REGULAR 100 UNIT/ML SUBCUT SCH ×3 (06:02→17:38)
[2020-02-03 06:09] LABS: Anisocytosis 1+; Band Neutrophils 7 % (0-10); Lymphocytes 11 % (20-55); Metamyelocytes 1 %; Nucleated Red Blood Cells 1 (0-5); Poikilocytosis Slight; Segmented Neutrophils 78 % (50-85); Total Cells Counted 100
[2020-02-03 06:10] LABS: Misc Morphology 5S
[2020-02-03] MEDS: MIDAZOLAM 100 MG in SODIUM CHLORIDE 0.9% 80 ML IV PRN (07:05)
[2020-02-03] MEDS: MINERAL OIL/PETROLATUM OPH OINT 3.5 GM TUBE BOTH EYES SCH ×3 (09:22→22:20)
[2020-02-03] MEDS: ENOXAPARIN 40 MG/0.4 ML SYRINGE SUBCUT SCH (09:22)
[2020-02-03] MEDS: methylPREDNISolone SOD SUC 40 MG/1 ML VIAL IV SCH ×2 (09:22→22:20)
[2020-02-03] MEDS: ENOXAPARIN 30 MG/0.3 ML SYRINGE SUBCUT SCH (09:43)
[2020-02-03] MEDS: hydrALAZINE 20 MG/1 ML VIAL IV PRN (13:42)
[2020-02-03] MEDS: INSULIN GLARGINE 100 UNIT/ML SUBCUT SCH (22:20)
[2020-02-03] MEDS: PANTOPRAZOLE 40 MG VIAL IV SCH (22:20)
[2020-02-04] MEDS: INSULIN REGULAR 100 UNIT/ML SUBCUT SCH ×5 (00:18→23:12)
[2020-02-04] MEDS: METOPROLOL TARTRATE 50 MG TABLET PER TUBE SCH ×3 (00:30→18:23)
[2020-02-04 08:55] LABS: ABG Base Excess 1.6 MMOL/L (-2.5-2.5); ABG Oxygen Saturation 97.7 % (95-100); ABG PCO2 39.8 MM HG (35-48); ABG PH 7.433 (7.35-7.45); ABG PO2 112.8 MM HG (80-95); ABG TCO2 27.2 MMOL/L (23-27)
[2020-02-04] MEDS: ENOXAPARIN 40 MG/0.4 ML SYRINGE SUBCUT SCH (09:09)
[2020-02-04] MEDS: MINERAL OIL/PETROLATUM OPH OINT 3.5 GM TUBE BOTH EYES SCH ×3 (09:09→22:45)
[2020-02-04] MEDS: methylPREDNISolone SOD SUC 40 MG/1 ML VIAL IV SCH ×2 (09:09→22:44)
[2020-02-04 10:09] LABS: Basophils % 0.2 % (0.0-0.8); Eosinophils % 0.1 % (0.00-10.9); Hematocrit 24.6 VOL% (35.7-47.0); Hemoglobin 7.9 GM/DL (12.0-16.0); Immature Granulocytes % 2.1 %; Immature Granulocytes Absolute 0.26 #; Lymphocytes # 0.9 10*3/uL (1.4-4.0); Lymphocytes % 7.1 % (21.3-54.2); Mean Corpuscular HGB Conc 32.1 GM/DL (32-36); Mean Corpuscular Volume 89.1 FL (87-102); Mean Platelet Volume 11.6 FL (9.6-12.0); NRBC # 0.07 10*3/uL; Neutrophils % 85.5 % (38.7-73.9); Platelet Count 186 T/CUMM (130-400); Red Blood Count 2.76 MC/CUMM (3.8-5.5); White Blood Count 12.5 T/CUMM (4-12)
[2020-02-04 10:38] LABS: Calcium 8.3 MG/DL (8.5-10.1); Osmolality,Calculated 285.7 MOS/KG (273-304)
[2020-02-04] MEDS: INSULIN GLARGINE 100 UNIT/ML SUBCUT SCH (22:45)
[2020-02-04] MEDS: PANTOPRAZOLE 40 MG VIAL IV SCH (22:45)
[2020-02-05] MEDS: METOPROLOL TARTRATE 50 MG TABLET PER TUBE SCH ×3 (01:42→18:06)
[2020-02-05 02:59] LABS: Basophils % 0.3 % (0.0-0.8); Eosinophils % 0.1 % (0.00-10.9); Hematocrit 27.4 VOL% (35.7-47.0); Hemoglobin 8.8 GM/DL (12.0-16.0); Immature Granulocytes % 2.8 %; Immature Granulocytes Absolute 0.44 #; Lymphocytes # 0.7 10*3/uL (1.4-4.0); Lymphocytes % 4.3 % (21.3-54.2); Mean Corpuscular HGB Conc 32.1 GM/DL (32-36); Mean Corpuscular Volume 88.4 FL (87-102); Mean Platelet Volume 11.8 FL (9.6-12.0); NRBC # 0.04 10*3/uL; Neutrophils % 88.5 % (38.7-73.9); Platelet Count 226 T/CUMM (130-400); Red Cell Distribution Width 15.8 % (9.3-17.3); White Blood Count 15.7 T/CUMM (4-12)
[2020-02-05 03:13] LABS: Calcium 8.5 MG/DL (8.5-10.1); Osmolality,Calculated 280.1 MOS/KG (273-304)
[2020-02-05 03:31] LABS: Anisocytosis 2+; Band Neutrophils 1 % (0-10); Hypochromasia 1+; Lymphocytes 4 % (20-55); Platelet Estimate Adequate; Polychromasia 1+; Segmented Neutrophils 95 % (50-85); Total Cells Counted 100
[2020-02-05 04:53] LABS: ABG Base Excess 2.7 MMOL/L (-2.5-2.5); ABG HCO3 26.9 MMOL/L (20-26); ABG Oxygen Saturation 98.8 % (95-100); ABG PCO2 39.8 MM HG (35-48); ABG TCO2 24.9 MMOL/L (23-27); Allen Test Positive; Pt O2 Delivery Device Ventilator
[2020-02-05] MEDS: INSULIN REGULAR 100 UNIT/ML SUBCUT SCH ×3 (06:11→18:07)
[2020-02-05] MEDS: MINERAL OIL/PETROLATUM OPH OINT 3.5 GM TUBE BOTH EYES SCH ×3 (08:31→21:24)
[2020-02-05] MEDS: ENOXAPARIN 40 MG/0.4 ML SYRINGE SUBCUT SCH (08:31)
[2020-02-05] MEDS: methylPREDNISolone SOD SUC 40 MG/1 ML VIAL IV SCH ×2 (08:31→21:07)
[2020-02-05] MEDS: INSULIN GLARGINE 100 UNIT/ML SUBCUT SCH (21:06)
[2020-02-05] MEDS: PANTOPRAZOLE 40 MG VIAL IV SCH (21:08)
[2020-02-06] MEDS: METOPROLOL TARTRATE 50 MG TABLET PER TUBE SCH ×3 (01:00→17:34)
[2020-02-06] MEDS: INSULIN REGULAR 100 UNIT/ML SUBCUT SCH ×4 (01:57→17:34)
[2020-02-06 04:19] LABS: Basophils % 0.1 % (0.0-0.8); Eosinophils % 0.1 % (0.00-10.9); Hematocrit 26.8 VOL% (35.7-47.0); Hemoglobin 8.6 GM/DL (12.0-16.0); Immature Granulocytes Absolute 0.41 #; Lymphocytes % 4.9 % (21.3-54.2); Mean Corpuscular HGB Conc 32.1 GM/DL (32-36); Mean Corpuscular Volume 87.9 FL (87-102); Mean Platelet Volume 11.5 FL (9.6-12.0); Monocytes % 3.1 % (1.7-12.7); NRBC # 0.04 10*3/uL; Neutrophils % 89.8 % (38.7-73.9); Platelet Count 233 T/CUMM (130-400); Red Blood Count 3.05 MC/CUMM (3.8-5.5); Red Cell Distribution Width 15.3 % (9.3-17.3); White Blood Count 20.4 T/CUMM (4-12)
[2020-02-06 05:09] LABS: ABG Base Excess 4.8 MMOL/L (-2.5-2.5); ABG HCO3 28.5 MMOL/L (20-26); ABG Oxygen Saturation 91.6 % (95-100); ABG PCO2 38.4 MM HG (35-48); ABG PH 7.488 (7.35-7.45); ABG PO2 61.6 MM HG (80-95); ABG TCO2 29.7 MMOL/L (23-27); Allen Test Positive; Pt O2 Delivery Device Ventilator
[2020-02-06 05:10] LABS: Calcium 8.2 MG/DL (8.5-10.1); Osmolality,Calculated 272.1 MOS/KG (273-304)
[2020-02-06] MEDS ORDERED: DEXTROSE 10% 250 ML IV SCH (05:19)
[2020-02-06 05:22] LABS: Eosinophils 1 % (0-10); Lymphocytes 2 % (20-55); Platelet Estimate Normal; Segmented Neutrophils 96 % (50-85); Total Cells Counted 100
[2020-02-06 05:23] LABS: Hypochromasia 1+; Microcytosis 2+; Polychromasia 1+
[2020-02-06 05:24] LABS: Stomatocytes 1+
[2020-02-06 05:25] LABS: Anisocytosis Slight
[2020-02-06] MEDS ORDERED: DEXTROSE 10% 250 ML BAG IV PRN (07:30)
[2020-02-06] MEDS: MINERAL OIL/PETROLATUM OPH OINT 3.5 GM TUBE BOTH EYES SCH ×3 (08:40→20:29)
[2020-02-06] MEDS: methylPREDNISolone SOD SUC 40 MG/1 ML VIAL IV SCH ×2 (08:45→20:28)
[2020-02-06] MEDS: ENOXAPARIN 40 MG/0.4 ML SYRINGE SUBCUT SCH (08:45)
[2020-02-06] MEDS ORDERED: INSULIN GLARGINE 100 UNIT/ML SUBCUT SCH (09:00)
[2020-02-06] MEDS: DEXTROSE 5% 1,000 ML IV SCH (10:15)
[2020-02-06] MEDS: amLODIPine 10 MG TABLET PO SCH (12:19)
[2020-02-06] MEDS: MEROPENEM 500 MG in SODIUM CHLORIDE 0.9% 100 ML IV SCH ×2 (17:34→22:04)
[2020-02-06 19:40] LABS: Apearance,Urine CLEAR (Clear); Bilirubin,Urine Negative (Negative); Blood, Urine Negative (Negative); Glucose,Urine (UA) >=500 mg/dL (Negative); Ketones,Urine Negative (Negative); Nitrite,Urine Negative (Negative); Protein,Urine Negative; RBC,Urine 3 /HPF (0-4); Urine Color Straw (Yellow); Urine Specific Gravity 1.008 (1.001-1.035); Urine Urobilinogen < 2.0 EU/DL (0.2-1.0); WBC,Urine 1 /HPF (0-6)
[2020-02-06] MEDS: PANTOPRAZOLE 40 MG VIAL IV SCH (20:29)
[2020-02-07] MEDS: INSULIN REGULAR 100 UNIT/ML SUBCUT SCH ×5 (00:26→23:32)
[2020-02-07] MEDS: METOPROLOL TARTRATE 50 MG TABLET PER TUBE SCH ×5 (00:50→23:03)
[2020-02-07] MEDS: DEXTROSE 5% 1,000 ML IV SCH (00:51)
[2020-02-07 04:14] LABS: ABG HCO3 28.7 MMOL/L (20-26); ABG Oxygen Saturation 92.8 % (95-100); ABG PCO2 38.8 MM HG (35-48); ABG PH 7.487 (7.35-7.45); ABG PO2 64.3 MM HG (80-95); ABG TCO2 29.9 MMOL/L (23-27); Allen Test Positive; Pt O2 Delivery Device Ventilator
[2020-02-07] MEDS: MEROPENEM 500 MG in SODIUM CHLORIDE 0.9% 100 ML IV SCH ×4 (04:41→23:03)
[2020-02-07 05:44] LABS: Basophils % 0.1 % (0.0-0.8); Eosinophils % 0.1 % (0.00-10.9); Hematocrit 25.8 VOL% (35.7-47.0); Hemoglobin 8.4 GM/DL (12.0-16.0); Immature Granulocytes % 2.4 %; Immature Granulocytes Absolute 0.46 #; Lymphocytes # 0.8 10*3/uL (1.4-4.0); Lymphocytes % 4.4 % (21.3-54.2); Mean Corpuscular HGB Conc 32.6 GM/DL (32-36); Mean Corpuscular Volume 86.9 FL (87-102); Mean Platelet Volume 11.2 FL (9.6-12.0); Monocytes % 1.9 % (1.7-12.7); NRBC # 0.03 10*3/uL; Neutrophils % 91.1 % (38.7-73.9); Platelet Count 220 T/CUMM (130-400); Red Blood Count 2.97 MC/CUMM (3.8-5.5); Red Cell Distribution Width 14.7 % (9.3-17.3); White Blood Count 19.1 T/CUMM (4-12)
[2020-02-07 06:04] LABS: Calcium 8.1 MG/DL (8.5-10.1); Osmolality,Calculated 272.2 MOS/KG (273-304)
[2020-02-07 06:08] LABS: Prealbumin 18.2 MG/DL (20-40)
[2020-02-07 06:11] LABS: Hypochromasia 2+; Lymphocytes 4 % (20-55); Ovalocytes Slight; Platelet Estimate Adequate; Segmented Neutrophils 92 % (50-85); Total Cells Counted 100
[2020-02-07 06:12] LABS: Microcytosis 1+
[2020-02-07] MEDS: amLODIPine 10 MG TABLET PO SCH (08:57)
[2020-02-07] MEDS: methylPREDNISolone SOD SUC 40 MG/1 ML VIAL IV SCH ×2 (08:57→20:06)
[2020-02-07] MEDS: ENOXAPARIN 40 MG/0.4 ML SYRINGE SUBCUT SCH (08:58)
[2020-02-07] MEDS: POTASSIUM CHLORIDE RIDER 20 MEQ in PREMIX 1 EACH IV PRN (09:30)
[2020-02-07] MEDS: MINERAL OIL/PETROLATUM OPH OINT 3.5 GM TUBE BOTH EYES SCH ×3 (13:22→20:06)
[2020-02-07] MEDS ORDERED: FUROSEMIDE 40 MG/4 ML VIAL IV ONE (14:45)
[2020-02-07 17:50] LABS: Apearance,Urine CLEAR (Clear); Bilirubin,Urine Negative (Negative); Blood, Urine Small mg/dL (Negative); Glucose,Urine (UA) >=500 mg/dL (Negative); Ketones,Urine Negative (Negative); Mucus,Urine Occasional /LPF (Occasional); Nitrite,Urine Negative (Negative); Protein,Urine 30 MG/DL; RBC,Urine 8 /HPF (0-4); Squamous Epithelial Cell,Urine Occasional /HPF (0-10); Urine Color Yellow (Yellow); Urine Specific Gravity 1.012 (1.001-1.035); Urine Urobilinogen < 2.0 EU/DL (0.2-1.0); WBC,Urine 1 /HPF (0-6)
[2020-02-07] MEDS: ROCURONIUM 500 MG in SODIUM CHLORIDE 0.9% 500 ML IV SCH (20:34)
[2020-02-07] MEDS: PANTOPRAZOLE 40 MG VIAL IV SCH (23:03)
[2020-02-08 03:09] LABS: ABG HCO3 25.1 MMOL/L (20-26); ABG Oxygen Saturation 86.4 % (95-100); ABG TCO2 29.1 MMOL/L (23-27)
[2020-02-08 03:14] LABS: ABG PH 7.205 (7.35-7.45)
[2020-02-08] MEDS: MEROPENEM 500 MG in SODIUM CHLORIDE 0.9% 100 ML IV SCH ×4 (04:27→22:08)
[2020-02-08] MEDS: METOPROLOL TARTRATE 50 MG TABLET PER TUBE SCH ×4 (04:27→22:07)
[2020-02-08 06:25] LABS: ABG Base Excess 2.5 MMOL/L (-2.5-2.5); ABG HCO3 26.6 MMOL/L (20-26); ABG Oxygen Saturation 99.1 % (95-100); ABG PCO2 51.8 MM HG (35-48); ABG PH 7.352 (7.35-7.45); ABG TCO2 26.6 MMOL/L (23-27); Allen Test Positive; Pt O2 Delivery Device Ventilator
[2020-02-08] MEDS: INSULIN REGULAR 100 UNIT/ML SUBCUT SCH ×3 (06:46→17:00)
[2020-02-08 07:02] LABS: Basophils % 0.1 % (0.0-0.8); Hematocrit 27.4 VOL% (35.7-47.0); Hemoglobin 8.7 GM/DL (12.0-16.0); Immature Granulocytes % 1.8 %; Immature Granulocytes Absolute 0.41 #; Lymphocytes # 0.5 10*3/uL (1.4-4.0); Lymphocytes % 2.2 % (21.3-54.2); Mean Corpuscular HGB Conc 31.8 GM/DL (32-36); Mean Corpuscular Volume 89.5 FL (87-102); Mean Platelet Volume 11.4 FL (9.6-12.0); NRBC # 0.04 10*3/uL; Neutrophils % 93.9 % (38.7-73.9); Platelet Count 213 T/CUMM (130-400); Red Blood Count 3.06 MC/CUMM (3.8-5.5); Red Cell Distribution Width 15.3 % (9.3-17.3); White Blood Count 22.5 T/CUMM (4-12)
[2020-02-08 07:20] LABS: Band Neutrophils 2 % (0-10); Lymphocytes 1 % (20-55); Segmented Neutrophils 95 % (50-85); Total Cells Counted 100
[2020-02-08 07:21] LABS: Hypochromasia 1+
[2020-02-08 07:22] LABS: Microcytosis 1+; Polychromasia Slight; Target Cells Slight; Tear Drop Cells Slight
[2020-02-08 07:23] LABS: Platelet Estimate Normal
[2020-02-08 07:39] LABS: Calcium 7.7 MG/DL (8.5-10.1); Osmolality,Calculated 278.9 MOS/KG (273-304)
[2020-02-08] MEDS: amLODIPine 10 MG TABLET PO SCH (08:22)
[2020-02-08] MEDS: methylPREDNISolone SOD SUC 40 MG/1 ML VIAL IV SCH ×2 (08:23→22:08)
[2020-02-08] MEDS: MINERAL OIL/PETROLATUM OPH OINT 3.5 GM TUBE BOTH EYES SCH ×3 (08:23→22:09)
[2020-02-08] MEDS: ROCURONIUM 500 MG in SODIUM CHLORIDE 0.9% 500 ML IV SCH ×2 (11:57→22:10)
[2020-02-08] MEDS: POTASSIUM CHLORIDE RIDER 20 MEQ in PREMIX 1 EACH IV PRN (12:00)
[2020-02-08] MEDS: ENOXAPARIN 40 MG/0.4 ML SYRINGE SUBCUT SCH (17:00)
[2020-02-08] MEDS: PANTOPRAZOLE 40 MG VIAL IV SCH (22:07)
[2020-02-09] MEDS: INSULIN REGULAR 100 UNIT/ML SUBCUT SCH ×4 (02:53→17:41)
[2020-02-09 03:21] LABS: Basophils % 0.1 % (0.0-0.8); Eosinophils % 0.1 % (0.00-10.9); Hematocrit 26.9 VOL% (35.7-47.0); Hemoglobin 8.2 GM/DL (12.0-16.0); Immature Granulocytes % 1.9 %; Immature Granulocytes Absolute 0.33 #; Lymphocytes # 0.4 10*3/uL (1.4-4.0); Lymphocytes % 2.5 % (21.3-54.2); Mean Corpuscular HGB Conc 30.5 GM/DL (32-36); Mean Corpuscular Volume 93.4 FL (87-102); Mean Platelet Volume 11.3 FL (9.6-12.0); Monocytes % 2.8 % (1.7-12.7); NRBC # 0.04 10*3/uL; Neutrophils % 92.6 % (38.7-73.9); Platelet Count 240 T/CUMM (130-400); Red Blood Count 2.88 MC/CUMM (3.8-5.5); Red Cell Distribution Width 15.5 % (9.3-17.3)
[2020-02-09 03:33] LABS: Calcium 7.9 MG/DL (8.5-10.1); Osmolality,Calculated 291.2 MOS/KG (273-304)
[2020-02-09 03:54] LABS: Anisocytosis 1+; Band Neutrophils 1 % (0-10); Hypochromasia 1+; Lymphocytes 1 % (20-55); Segmented Neutrophils 96 % (50-85); Total Cells Counted 100
[2020-02-09 03:55] LABS: ABG Base Excess 4.5 MMOL/L (-2.5-2.5); ABG HCO3 30.9 MMOL/L (20-26); ABG PCO2 58.1 MM HG (35-48); ABG PH 7.343 (7.35-7.45); ABG PO2 218.3 MM HG (80-95); ABG TCO2 32.6 MMOL/L (23-27); Allen Test Positive; Pt O2 Delivery Device Ventilator
[2020-02-09 03:55] LABS: Platelet Estimate Normal
[2020-02-09] MEDS: MEROPENEM 500 MG in SODIUM CHLORIDE 0.9% 100 ML IV SCH ×2 (03:59→11:44)
[2020-02-09] MEDS: METOPROLOL TARTRATE 50 MG TABLET PER TUBE SCH ×3 (05:15→17:41)
[2020-02-09] MEDS: ENOXAPARIN 40 MG/0.4 ML SYRINGE SUBCUT SCH ×2 (05:16→17:41)
[2020-02-09] MEDS: MINERAL OIL/PETROLATUM OPH OINT 3.5 GM TUBE BOTH EYES SCH ×3 (08:10→20:29)
[2020-02-09] MEDS: methylPREDNISolone SOD SUC 40 MG/1 ML VIAL IV SCH (08:10)
[2020-02-09] MEDS: amLODIPine 10 MG TABLET PO SCH (08:10)
[2020-02-09] MEDS: DEXTROSE 5% 1,000 ML IV SCH (10:45)
[2020-02-09] MEDS: ROCURONIUM 500 MG in SODIUM CHLORIDE 0.9% 500 ML IV SCH ×2 (17:30→21:37)
[2020-02-09] MEDS: PANTOPRAZOLE 40 MG VIAL IV SCH (20:30)
[2020-02-10] MEDS: INSULIN REGULAR 100 UNIT/ML SUBCUT SCH ×4 (00:25→17:52)
[2020-02-10] MEDS: METOPROLOL TARTRATE 50 MG TABLET PER TUBE SCH ×4 (00:28→17:53)
[2020-02-10 04:48] LABS: ABG Base Excess 4.3 MMOL/L (-2.5-2.5); ABG HCO3 28.2 MMOL/L (20-26); ABG Oxygen Saturation 95.1 % (95-100); ABG PCO2 49.2 MM HG (35-48); ABG PH 7.392 (7.35-7.45); ABG TCO2 27.7 MMOL/L (23-27); Allen Test Positive; Pt O2 Delivery Device Ventilator
[2020-02-10] MEDS: ROCURONIUM 500 MG in SODIUM CHLORIDE 0.9% 500 ML IV SCH ×2 (05:23→21:10)
[2020-02-10 05:44] LABS: Basophils % 0.2 % (0.0-0.8); Eosinophils # 0.3 10*3/uL (0.0-0.87); Eosinophils % 1.6 % (0.00-10.9); Hematocrit 25.7 VOL% (35.7-47.0); Hemoglobin 8.1 GM/DL (12.0-16.0); Immature Granulocytes % 3.6 %; Immature Granulocytes Absolute 0.59 #; Lymphocytes # 1.7 10*3/uL (1.4-4.0); Lymphocytes % 10.5 % (21.3-54.2); Mean Corpuscular HGB Conc 31.5 GM/DL (32-36); Mean Corpuscular Volume 90.2 FL (87-102); Mean Platelet Volume 11.8 FL (9.6-12.0); Monocytes % 4.9 % (1.7-12.7); NRBC # 0.05 10*3/uL; Neutrophils % 79.2 % (38.7-73.9); Platelet Count 290 T/CUMM (130-400); Red Blood Count 2.85 MC/CUMM (3.8-5.5); Red Cell Distribution Width 15.8 % (9.3-17.3); White Blood Count 16.6 T/CUMM (4-12)
[2020-02-10] MEDS: ENOXAPARIN 40 MG/0.4 ML SYRINGE SUBCUT SCH ×2 (06:00→17:53)
[2020-02-10 06:04] LABS: Band Neutrophils 1 % (0-10); Hypochromasia 1+; Lymphocytes 9 % (20-55); Platelet Estimate Adequate; Segmented Neutrophils 84 % (50-85); Total Cells Counted 100
[2020-02-10 06:05] LABS: Microcytosis 1+
[2020-02-10] MEDS: predniSONE 20 MG TABLET PER TUBE SCH (08:35)
[2020-02-10] MEDS: amLODIPine 10 MG TABLET PO SCH (08:36)
[2020-02-10] MEDS: MINERAL OIL/PETROLATUM OPH OINT 3.5 GM TUBE BOTH EYES SCH ×3 (08:36→20:05)
[2020-02-10] MEDS: LINEZOLID INJ 600 MG in PREMIX 1 EACH IV SCH (16:08)
[2020-02-10] MEDS: PANTOPRAZOLE 40 MG VIAL IV SCH (21:10)
[2020-02-11] MEDS: INSULIN REGULAR 100 UNIT/ML SUBCUT SCH ×4 (00:58→17:46)
[2020-02-11] MEDS: METOPROLOL TARTRATE 50 MG TABLET PER TUBE SCH ×4 (00:59→17:46)
[2020-02-11] MEDS: LINEZOLID INJ 600 MG in PREMIX 1 EACH IV SCH ×2 (03:30→15:12)
[2020-02-11 05:01] LABS: ABG Base Excess 5.6 MMOL/L (-2.5-2.5); ABG HCO3 29.6 MMOL/L (20-26); ABG Oxygen Saturation 95.1 % (95-100); ABG PCO2 40.8 MM HG (35-48); ABG PH 7.478 (7.35-7.45); ABG TCO2 30.8 MMOL/L (23-27); Allen Test Positive; Pt O2 Delivery Device Ventilator
[2020-02-11 05:05] LABS: Basophils % 0.2 % (0.0-0.8); Eosinophils # 0.4 10*3/uL (0.0-0.87); Eosinophils % 2.8 % (0.00-10.9); Hematocrit 24.1 VOL% (35.7-47.0); Hemoglobin 7.4 GM/DL (12.0-16.0); Immature Granulocytes % 4.9 %; Immature Granulocytes Absolute 0.66 #; Lymphocytes # 1.8 10*3/uL (1.4-4.0); Lymphocytes % 13.5 % (21.3-54.2); Mean Corpuscular HGB Conc 30.7 GM/DL (32-36); Mean Platelet Volume 11.2 FL (9.6-12.0); NRBC # 0.07 10*3/uL; Neutrophils % 74.6 % (38.7-73.9); Platelet Count 280 T/CUMM (130-400); Red Blood Count 2.62 MC/CUMM (3.8-5.5); Red Cell Distribution Width 15.4 % (9.3-17.3); White Blood Count 13.6 T/CUMM (4-12)
[2020-02-11 05:18] LABS: Calcium 7.8 MG/DL (8.5-10.1); Osmolality,Calculated 286.8 MOS/KG (273-304)
[2020-02-11] MEDS: ENOXAPARIN 40 MG/0.4 ML SYRINGE SUBCUT SCH ×2 (05:31→17:17)
[2020-02-11] MEDS: amLODIPine 10 MG TABLET PO SCH (08:26)
[2020-02-11] MEDS: MINERAL OIL/PETROLATUM OPH OINT 3.5 GM TUBE BOTH EYES SCH ×3 (08:26→21:30)
[2020-02-11] MEDS: predniSONE 20 MG TABLET PER TUBE SCH (08:26)
[2020-02-11] MEDS ORDERED: FUROSEMIDE 40 MG/4 ML VIAL IV ONE (13:13)
[2020-02-11] MEDS: ROCURONIUM 500 MG in SODIUM CHLORIDE 0.9% 500 ML IV SCH (20:43)
[2020-02-11] MEDS: PANTOPRAZOLE 40 MG VIAL IV SCH (21:38)
[2020-02-11] MEDS: INSULIN GLARGINE 100 UNIT/ML SUBCUT SCH (21:38)
[2020-02-12] MEDS: METOPROLOL TARTRATE 50 MG TABLET PER TUBE SCH ×4 (00:42→18:55)
[2020-02-12] MEDS: INSULIN REGULAR 100 UNIT/ML SUBCUT SCH ×4 (00:42→18:55)
[2020-02-12 03:46] LABS: Basophils % 0.2 % (0.0-0.8); Eosinophils # 0.5 10*3/uL (0.0-0.87); Eosinophils % 3.2 % (0.00-10.9); Hematocrit 25.2 VOL% (35.7-47.0); Hemoglobin 8.1 GM/DL (12.0-16.0); Immature Granulocytes % 4.5 %; Immature Granulocytes Absolute 0.63 #; Lymphocytes # 1.4 10*3/uL (1.4-4.0); Lymphocytes % 9.9 % (21.3-54.2); Mean Corpuscular HGB Conc 32.1 GM/DL (32-36); Mean Platelet Volume 11.1 FL (9.6-12.0); Monocytes % 2.9 % (1.7-12.7); NRBC # 0.07 10*3/uL; Neutrophils % 79.3 % (38.7-73.9); Platelet Count 305 T/CUMM (130-400); Red Blood Count 2.83 MC/CUMM (3.8-5.5); Red Cell Distribution Width 15.3 % (9.3-17.3); White Blood Count 14.1 T/CUMM (4-12)
[2020-02-12 03:46] LABS: ABG HCO3 29.9 MMOL/L (20-26); ABG Oxygen Saturation 97.5 % (95-100); ABG PCO2 38.3 MM HG (35-48); ABG PH 7.497 (7.35-7.45); ABG PO2 82.2 MM HG (80-95); ABG TCO2 27.3 MMOL/L (23-27); Allen Test Positive; Pt O2 Delivery Device Ventilator
[2020-02-12 04:14] LABS: Calcium 8.2 MG/DL (8.5-10.1); Osmolality,Calculated 286.7 MOS/KG (273-304)
[2020-02-12] MEDS: LINEZOLID INJ 600 MG in PREMIX 1 EACH IV SCH ×2 (04:44→18:54)
[2020-02-12 04:51] LABS: Eosinophils 4 % (0-10); Lymphocytes 7 % (20-55); Nucleated Red Blood Cells 1 (0-5); Segmented Neutrophils 85 % (50-85); Total Cells Counted 100
[2020-02-12 04:52] LABS: Hypochromasia 2+; Platelet Estimate Normal
[2020-02-12 04:53] LABS: Polychromasia 1+
[2020-02-12] MEDS: ENOXAPARIN 40 MG/0.4 ML SYRINGE SUBCUT SCH ×2 (06:00→18:55)
[2020-02-12] MEDS: predniSONE 20 MG TABLET PER TUBE SCH (09:13)
[2020-02-12] MEDS: amLODIPine 10 MG TABLET PO SCH (09:13)
[2020-02-12] MEDS: POTASSIUM CHLORIDE RIDER 20 MEQ in PREMIX 1 EACH IV PRN (09:14)
[2020-02-12] MEDS: MINERAL OIL/PETROLATUM OPH OINT 3.5 GM TUBE BOTH EYES SCH ×3 (09:14→20:17)
[2020-02-12] MEDS: ROCURONIUM 500 MG in SODIUM CHLORIDE 0.9% 500 ML IV SCH (20:16)
[2020-02-12] MEDS: INSULIN GLARGINE 100 UNIT/ML SUBCUT SCH (20:17)
[2020-02-12] MEDS: PANTOPRAZOLE 40 MG VIAL IV SCH (20:48)
[2020-02-13] MEDS: METOPROLOL TARTRATE 50 MG TABLET PER TUBE SCH ×4 (00:45→17:31)
[2020-02-13] MEDS: INSULIN REGULAR 100 UNIT/ML SUBCUT SCH ×5 (00:45→23:19)
[2020-02-13 03:28] LABS: ABG Base Excess 4.7 MMOL/L (-2.5-2.5); ABG HCO3 28.6 MMOL/L (20-26); ABG Oxygen Saturation 92.4 % (95-100); ABG PCO2 36.5 MM HG (35-48); ABG PH 7.495 (7.35-7.45); ABG PO2 56.9 MM HG (80-95)
[2020-02-13] MEDS: LINEZOLID INJ 600 MG in PREMIX 1 EACH IV SCH ×2 (04:24→15:59)
[2020-02-13 04:51] LABS: Basophils # 0.1 10*3/uL (0.0-0.2); Basophils % 0.3 % (0.0-0.8); Eosinophils # 0.5 10*3/uL (0.0-0.87); Eosinophils % 3.2 % (0.00-10.9); Hematocrit 28.1 VOL% (35.7-47.0); Hemoglobin 9.1 GM/DL (12.0-16.0); Immature Granulocytes % 3.5 %; Immature Granulocytes Absolute 0.58 #; Lymphocytes # 1.3 10*3/uL (1.4-4.0); Lymphocytes % 7.8 % (21.3-54.2); Mean Corpuscular HGB Conc 32.4 GM/DL (32-36); Mean Corpuscular Volume 87.8 FL (87-102); Mean Platelet Volume 11.4 FL (9.6-12.0); Monocytes % 3.1 % (1.7-12.7); NRBC # 0.06 10*3/uL; Neutrophils % 82.1 % (38.7-73.9); Platelet Count 367 T/CUMM (130-400); Red Cell Distribution Width 15.3 % (9.3-17.3); White Blood Count 16.7 T/CUMM (4-12)
[2020-02-13 05:02] LABS: Calcium 8.6 MG/DL (8.5-10.1); Osmolality,Calculated 283.7 MOS/KG (273-304)
[2020-02-13] MEDS: ENOXAPARIN 40 MG/0.4 ML SYRINGE SUBCUT SCH ×2 (05:58→17:31)
[2020-02-13 07:07] LABS: Eosinophils 1 % (0-10); Lymphocytes 7 % (20-55); Platelet Estimate Normal; Segmented Neutrophils 89 % (50-85); Total Cells Counted 100
[2020-02-13] MEDS: predniSONE 20 MG TABLET PER TUBE SCH (08:02)
[2020-02-13] MEDS: amLODIPine 10 MG TABLET PO SCH (08:02)
[2020-02-13] MEDS: MINERAL OIL/PETROLATUM OPH OINT 3.5 GM TUBE BOTH EYES SCH ×3 (08:02→21:50)
[2020-02-13] MEDS: INSULIN GLARGINE 100 UNIT/ML SUBCUT SCH (21:49)
[2020-02-13] MEDS: PANTOPRAZOLE 40 MG VIAL IV SCH (21:50)
[2020-02-14] MEDS: METOPROLOL TARTRATE 50 MG TABLET PER TUBE SCH ×4 (00:20→18:22)
[2020-02-14 04:37] LABS: Basophils # 0.1 10*3/uL (0.0-0.2); Basophils % 0.4 % (0.0-0.8); Eosinophils # 0.6 10*3/uL (0.0-0.87); Eosinophils % 3.9 % (0.00-10.9); Hematocrit 28.2 VOL% (35.7-47.0); Hemoglobin 8.9 GM/DL (12.0-16.0); Immature Granulocytes % 2.3 %; Immature Granulocytes Absolute 0.38 #; Lymphocytes # 1.4 10*3/uL (1.4-4.0); Lymphocytes % 8.9 % (21.3-54.2); Mean Corpuscular HGB Conc 31.6 GM/DL (32-36); Mean Corpuscular Volume 89.8 FL (87-102); Mean Platelet Volume 11.1 FL (9.6-12.0); Monocytes % 3.5 % (1.7-12.7); NRBC # 0.04 10*3/uL; Platelet Count 372 T/CUMM (130-400); Red Blood Count 3.14 MC/CUMM (3.8-5.5); White Blood Count 16.2 T/CUMM (4-12)
[2020-02-14] MEDS: LINEZOLID INJ 600 MG in PREMIX 1 EACH IV SCH ×2 (04:47→15:53)
[2020-02-14 05:13] LABS: Calcium 8.8 MG/DL (8.5-10.1); Osmolality,Calculated 282.8 MOS/KG (273-304)
[2020-02-14] MEDS: INSULIN REGULAR 100 UNIT/ML SUBCUT SCH ×4 (05:40→23:58)
[2020-02-14] MEDS: ENOXAPARIN 40 MG/0.4 ML SYRINGE SUBCUT SCH ×2 (05:41→18:22)
[2020-02-14] MEDS: predniSONE 20 MG TABLET PER TUBE SCH (08:51)
[2020-02-14] MEDS: amLODIPine 10 MG TABLET PO SCH (08:51)
[2020-02-14] MEDS: MINERAL OIL/PETROLATUM OPH OINT 3.5 GM TUBE BOTH EYES SCH ×2 (08:51→15:53)
[2020-02-14] MEDS ORDERED: MIDAZOLAM 2 MG/2 ML VIAL IV ONE (11:46)
[2020-02-14] MEDS: INSULIN GLARGINE 100 UNIT/ML SUBCUT SCH (21:51)
[2020-02-15] MEDS: METOPROLOL TARTRATE 50 MG TABLET PER TUBE SCH ×4 (00:47→22:45)
[2020-02-15 05:39] LABS: Basophils # 0.1 10*3/uL (0.0-0.2); Basophils % 0.3 % (0.0-0.8); Eosinophils # 0.6 10*3/uL (0.0-0.87); Eosinophils % 3.1 % (0.00-10.9); Hematocrit 26.9 VOL% (35.7-47.0); Hemoglobin 8.7 GM/DL (12.0-16.0); Immature Granulocytes % 1.4 %; Immature Granulocytes Absolute 0.25 #; Lymphocytes # 1.3 10*3/uL (1.4-4.0); Lymphocytes % 7.5 % (21.3-54.2); Mean Corpuscular HGB Conc 32.3 GM/DL (32-36); Mean Corpuscular Volume 87.6 FL (87-102); Mean Platelet Volume 11.2 FL (9.6-12.0); Monocytes % 3.5 % (1.7-12.7); NRBC # 0.03 10*3/uL; Neutrophils % 84.2 % (38.7-73.9); Platelet Count 352 T/CUMM (130-400); Red Blood Count 3.07 MC/CUMM (3.8-5.5); Red Cell Distribution Width 15.1 % (9.3-17.3); White Blood Count 17.5 T/CUMM (4-12)
[2020-02-15] MEDS: INSULIN REGULAR 100 UNIT/ML SUBCUT SCH ×4 (05:55→23:12)
[2020-02-15 06:09] LABS: Calcium 8.5 MG/DL (8.5-10.1); Osmolality,Calculated 279.2 MOS/KG (273-304)
[2020-02-15] MEDS: ENOXAPARIN 40 MG/0.4 ML SYRINGE SUBCUT SCH ×2 (06:31→22:45)
[2020-02-15] MEDS: LINEZOLID INJ 600 MG in PREMIX 1 EACH IV SCH (06:31)
[2020-02-15] MEDS: predniSONE 20 MG TABLET PER TUBE SCH (08:43)
[2020-02-15] MEDS: amLODIPine 10 MG TABLET PO SCH (08:43)
[2020-02-15] MEDS: ACETAMINOPHEN 325 MG TABLET PO PRN (22:45)
[2020-02-15] MEDS: INSULIN GLARGINE 100 UNIT/ML SUBCUT SCH (22:45)
[2020-02-16] MEDS: METOPROLOL TARTRATE 50 MG TABLET PER TUBE SCH ×4 (04:53→20:40)
[2020-02-16] MEDS: INSULIN REGULAR 100 UNIT/ML SUBCUT SCH ×3 (05:20→18:02)
[2020-02-16] MEDS: ENOXAPARIN 40 MG/0.4 ML SYRINGE SUBCUT SCH ×2 (09:50→20:40)
[2020-02-16] MEDS: amLODIPine 10 MG TABLET PO SCH (09:50)
[2020-02-16] MEDS: predniSONE 20 MG TABLET PER TUBE SCH (09:50)
[2020-02-16 12:20] LABS: Basophils # 0.1 10*3/uL (0.0-0.2); Basophils % 0.3 % (0.0-0.8); Eosinophils # 0.6 10*3/uL (0.0-0.87); Hematocrit 26.6 VOL% (35.7-47.0); Hemoglobin 8.5 GM/DL (12.0-16.0); Immature Granulocytes % 1.8 %; Immature Granulocytes Absolute 0.34 #; Lymphocytes # 1.1 10*3/uL (1.4-4.0); Lymphocytes % 5.8 % (21.3-54.2); Mean Corpuscular Volume 89.3 FL (87-102); Mean Platelet Volume 10.9 FL (9.6-12.0); Monocytes % 2.3 % (1.7-12.7); NRBC # 0.02 10*3/uL; Neutrophils % 86.8 % (38.7-73.9); Platelet Count 374 T/CUMM (130-400); Red Blood Count 2.98 MC/CUMM (3.8-5.5); Red Cell Distribution Width 15.2 % (9.3-17.3); White Blood Count 18.6 T/CUMM (4-12)
[2020-02-16 12:48] LABS: Calcium 8.5 MG/DL (8.5-10.1)
[2020-02-16] MEDS ORDERED: TUBERCULIN SKIN TEST 0.1 ML SYRINGE INTRADERM ONE (15:00)
[2020-02-16] MEDS: INSULIN GLARGINE 100 UNIT/ML SUBCUT SCH (20:39)
[2020-02-16] MEDS: ACETAMINOPHEN 325 MG TABLET PO PRN (23:56)
[2020-02-17] MEDS: INSULIN REGULAR 100 UNIT/ML SUBCUT SCH ×4 (00:20→18:34)
[2020-02-17] MEDS: METOPROLOL TARTRATE 50 MG TABLET PER TUBE SCH ×4 (04:30→20:07)
[2020-02-17 06:47] LABS: Basophils # 0.1 10*3/uL (0.0-0.2); Basophils % 0.4 % (0.0-0.8); Eosinophils # 0.5 10*3/uL (0.0-0.87); Eosinophils % 3.1 % (0.00-10.9); Hematocrit 26.1 VOL% (35.7-47.0); Hemoglobin 8.2 GM/DL (12.0-16.0); Immature Granulocytes % 2.2 %; Immature Granulocytes Absolute 0.34 #; Lymphocytes # 1.9 10*3/uL (1.4-4.0); Mean Corpuscular HGB Conc 31.4 GM/DL (32-36); Mean Corpuscular Volume 91.6 FL (87-102); Mean Platelet Volume 11.2 FL (9.6-12.0); Monocytes % 4.4 % (1.7-12.7); NRBC # 0.02 10*3/uL; Neutrophils % 77.9 % (38.7-73.9); Platelet Count 362 T/CUMM (130-400); Red Blood Count 2.85 MC/CUMM (3.8-5.5); Red Cell Distribution Width 15.5 % (9.3-17.3); White Blood Count 15.8 T/CUMM (4-12)
[2020-02-17] MEDS: amLODIPine 10 MG TABLET PO SCH (08:37)
[2020-02-17] MEDS: ENOXAPARIN 40 MG/0.4 ML SYRINGE SUBCUT SCH ×2 (08:37→20:07)
[2020-02-17] MEDS: predniSONE 20 MG TABLET PER TUBE SCH (08:37)
[2020-02-17 11:23] LABS: Calcium 8.6 MG/DL (8.5-10.1); Osmolality,Calculated 285.5 MOS/KG (273-304)
[2020-02-17] MEDS: INSULIN GLARGINE 100 UNIT/ML SUBCUT SCH (20:09)
[2020-02-17] MEDS: ACETAMINOPHEN 325 MG TABLET PO PRN (20:51)
[2020-02-18] MEDS: INSULIN REGULAR 100 UNIT/ML SUBCUT SCH ×4 (01:52→18:08)
[2020-02-18] MEDS: METOPROLOL TARTRATE 50 MG TABLET PER TUBE SCH ×4 (06:36→22:24)
[2020-02-18] MEDS: amLODIPine 10 MG TABLET PO SCH (09:31)
[2020-02-18] MEDS: predniSONE 20 MG TABLET PER TUBE SCH (09:31)
[2020-02-18] MEDS: ENOXAPARIN 40 MG/0.4 ML SYRINGE SUBCUT SCH ×2 (09:31→22:24)
[2020-02-18] MEDS: INSULIN GLARGINE 100 UNIT/ML SUBCUT SCH (23:00)
[2020-02-19] MEDS: INSULIN REGULAR 100 UNIT/ML SUBCUT SCH ×4 (00:58→17:50)
[2020-02-19] MEDS: METOPROLOL TARTRATE 50 MG TABLET PER TUBE SCH ×4 (03:45→22:09)
[2020-02-19] MEDS: amLODIPine 10 MG TABLET PO SCH (08:44)
[2020-02-19] MEDS: ENOXAPARIN 40 MG/0.4 ML SYRINGE SUBCUT SCH ×2 (08:44→22:09)
[2020-02-19] MEDS: predniSONE 20 MG TABLET PER TUBE SCH (08:45)
[2020-02-19] MEDS ORDERED: FUROSEMIDE 40 MG/4 ML VIAL IV ONE (11:16)
[2020-02-19] MEDS ORDERED: MORPHINE 4 MG/1 ML VIAL IV ONE (19:36)
[2020-02-19 19:39] LABS: ABG Base Excess 3.4 MMOL/L (-2.5-2.5); ABG HCO3 26.6 MMOL/L (20-26); ABG Oxygen Saturation 51.9 % (95-100); ABG PCO2 33.4 MM HG (35-48); ABG PH 7.504 (7.35-7.45); Allen Test Positive; Pt O2 Delivery Device Venturi Mask
[2020-02-19 19:43] LABS: ABG PO2 28.3 MM HG (80-95)
[2020-02-19] MEDS: METOCLOPRAMIDE 10 MG/10 ML UDCUP PO SCH (22:03)
[2020-02-19] MEDS: INSULIN GLARGINE 100 UNIT/ML SUBCUT SCH (22:04)
[2020-02-19] MEDS: MORPHINE 4 MG/1 ML VIAL IV PRN (23:35)
[2020-02-20] MEDS: METOCLOPRAMIDE 10 MG/10 ML UDCUP PO SCH ×5 (01:22→23:00)
[2020-02-20] MEDS ORDERED: LORazepam 2 MG/1 ML VIAL IV ONE (02:05)
[2020-02-20] MEDS: INSULIN REGULAR 100 UNIT/ML SUBCUT SCH ×4 (02:08→19:21)
[2020-02-20] MEDS: MORPHINE 4 MG/1 ML VIAL IV PRN ×3 (04:10→17:43)
[2020-02-20] MEDS: METOPROLOL TARTRATE 50 MG TABLET PER TUBE SCH ×4 (04:18→20:58)
[2020-02-20 06:17] LABS: Calcium 8.6 MG/DL (8.5-10.1); Osmolality,Calculated 292.5 MOS/KG (273-304)
[2020-02-20] MEDS ORDERED: SODIUM CHLORIDE 0.9% 500 ML IV ONE (07:12)
[2020-02-20] MEDS: predniSONE 20 MG TABLET PER TUBE SCH (08:37)
[2020-02-20] MEDS: amLODIPine 10 MG TABLET PO SCH (08:37)
[2020-02-20] MEDS: ENOXAPARIN 40 MG/0.4 ML SYRINGE SUBCUT SCH (10:27)
[2020-02-20] MEDS ORDERED: SCOPOLAMINE 1.5 MG PATCH TRANSDERM SCH (10:30)
[2020-02-20] MEDS: DEXTROSE 5% NACL 0.45% 1,000 ML IV SCH ×2 (16:07→16:08)
[2020-02-20] MEDS ORDERED: METOPROLOL TARTRATE 5 MG/5 ML VIAL IV ONE (20:57)
[2020-02-20] MEDS: INSULIN GLARGINE 100 UNIT/ML SUBCUT SCH (21:11)
[2020-02-21] MEDS: INSULIN REGULAR 100 UNIT/ML SUBCUT SCH ×4 (00:34→18:17)
[2020-02-21] MEDS: MORPHINE 4 MG/1 ML VIAL IV PRN ×2 (00:35→15:14)
[2020-02-21] MEDS: METOPROLOL TARTRATE 50 MG TABLET PER TUBE SCH (04:12)
[2020-02-21] MEDS: METOCLOPRAMIDE 10 MG/10 ML UDCUP PO SCH ×3 (05:01→18:38)
[2020-02-21 06:53] LABS: Basophils % 0.3 % (0.0-0.8); Hematocrit 25.9 VOL% (35.7-47.0); Hemoglobin 7.9 GM/DL (12.0-16.0); Immature Granulocytes % 0.5 %; Immature Granulocytes Absolute 0.06 #; Lymphocytes # 0.7 10*3/uL (1.4-4.0); Lymphocytes % 5.7 % (21.3-54.2); Mean Corpuscular HGB Conc 30.5 GM/DL (32-36); Mean Corpuscular Volume 91.8 FL (87-102); Mean Platelet Volume 11.4 FL (9.6-12.0); Monocytes % 2.1 % (1.7-12.7); NRBC # 0.02 10*3/uL; Neutrophils % 91.4 % (38.7-73.9); Platelet Count 254 T/CUMM (130-400); Red Blood Count 2.82 MC/CUMM (3.8-5.5); Red Cell Distribution Width 17.2 % (9.3-17.3); White Blood Count 13.1 T/CUMM (4-12)
[2020-02-21 07:01] LABS: Calcium 8.5 MG/DL (8.5-10.1); Osmolality,Calculated 303.8 MOS/KG (273-304)
[2020-02-21 07:17] LABS: Band Neutrophils 10 % (0-10); Hypochromasia 2+; Lymphocytes 3 % (20-55); Platelet Estimate Adequate; Segmented Neutrophils 86 % (50-85); Total Cells Counted 100
[2020-02-21] MEDS ORDERED: ceFAZolin 1,000 MG in SYRINGE 1 EACH IV ONE (08:00)
[2020-02-21] MEDS ORDERED: LACTATED RINGERS 1,000 ML IV SCH (08:00)
[2020-02-21] MEDS: METOPROLOL TARTRATE 5 MG/5 ML VIAL IV SCH ×3 (08:04→11:23)
[2020-02-21] MEDS ORDERED: METOPROLOL TARTRATE 5 MG/5 ML VIAL IV ONE (08:20)
[2020-02-21] MEDS ORDERED: METOPROLOL TARTRATE 5 MG/5 ML VIAL IV SCH ×2 (10:00→12:00)
[2020-02-21] MEDS: DEXTROSE 5% NACL 0.45% 1,000 ML IV SCH ×2 (10:55→16:02)
[2020-02-21] MEDS: amLODIPine 10 MG TABLET PO SCH (11:23)
[2020-02-21] MEDS: predniSONE 20 MG TABLET PER TUBE SCH (11:23)
[2020-02-21 12:09] LABS: INR 1.5; PT Patient Result 15.8 SECS (9.8-11.9)
[2020-02-21] MEDS: LACTATED RINGERS 1,000 ML IV SCH (15:14)
[2020-02-21] MEDS: LABETALOL 100 MG/20 ML VIAL IV SCH (18:13)
[2020-02-21] MEDS: INSULIN GLARGINE 100 UNIT/ML SUBCUT SCH (22:10)
[2020-02-22] MEDS: LABETALOL 100 MG/20 ML VIAL IV SCH ×3 (01:00→14:48)
[2020-02-22] MEDS: METOCLOPRAMIDE 10 MG/10 ML UDCUP PO SCH ×4 (01:01→17:08)
[2020-02-22] MEDS: INSULIN REGULAR 100 UNIT/ML SUBCUT SCH ×4 (01:02→17:59)
[2020-02-22] MEDS: LACTATED RINGERS 1,000 ML IV SCH (05:47)
[2020-02-22 06:18] LABS: Basophils % 0.3 % (0.0-0.8); Hematocrit 26.4 VOL% (35.7-47.0); Hemoglobin 8.3 GM/DL (12.0-16.0); Immature Granulocytes % 0.3 %; Immature Granulocytes Absolute 0.04 #; Lymphocytes # 0.6 10*3/uL (1.4-4.0); Lymphocytes % 4.4 % (21.3-54.2); Mean Corpuscular HGB Conc 31.4 GM/DL (32-36); Mean Corpuscular Volume 89.8 FL (87-102); Mean Platelet Volume 11.5 FL (9.6-12.0); Monocytes % 1.8 % (1.7-12.7); NRBC # 0.03 10*3/uL; Neutrophils % 93.2 % (38.7-73.9); Platelet Count 256 T/CUMM (130-400); Red Blood Count 2.94 MC/CUMM (3.8-5.5); Red Cell Distribution Width 17.2 % (9.3-17.3); White Blood Count 14.4 T/CUMM (4-12)
[2020-02-22 06:38] LABS: Albumin 1.7 G/DL (3.4-5.0); Bilirubin,Total 1.6 MG/DL (0.2-1.0); Osmolality,Calculated 315.1 MOS/KG (273-304); Total Protein 7.6 G/DL (6.4-8.3)
[2020-02-22 06:41] LABS: Anisocytosis 1+; Band Neutrophils 6 % (0-10); Hypochromasia 1+; Lymphocytes 7 % (20-55); Microcytosis 1+; Segmented Neutrophils 82 % (50-85); Target Cells Slight; Total Cells Counted 100
[2020-02-22 06:42] LABS: Platelet Estimate Normal
[2020-02-22 06:43] LABS: Polychromasia Slight
[2020-02-22 09:32] LABS: ABG Base Excess 1.5 MMOL/L (-2.5-2.5); ABG HCO3 25.6 MMOL/L (20-26); ABG Oxygen Saturation 82.5 % (95-100); ABG PCO2 31.7 MM HG (35-48); ABG PH 7.495 (7.35-7.45); ABG PO2 45.5 MM HG (80-95); ABG TCO2 22.7 MMOL/L (23-27); Allen Test Positive
[2020-02-22] MEDS: amLODIPine 10 MG TABLET PO SCH (10:20)
[2020-02-22] MEDS: predniSONE 20 MG TABLET PER TUBE SCH (10:20)
[2020-02-22] MEDS ORDERED: CLINDAMYCIN INJ 600 MG in PREMIX 1 EACH IV SCH (10:30)
[2020-02-22] MEDS: MORPHINE 4 MG/1 ML VIAL IV PRN ×2 (10:43→18:01)
[2020-02-22] MEDS: LORazepam 2 MG/1 ML VIAL IV PRN ×2 (10:43→18:01)
[2020-02-22] MEDS ORDERED: LORazepam 2 MG/1 ML VIAL ONE (10:47)
[2020-02-22] MEDS: DEXTROSE 5% NACL 0.45% 1,000 ML IV SCH (17:03)
[2020-02-22] MEDS ORDERED: LABETALOL 100 MG/20 ML VIAL IV SCH (20:00)
[2020-02-22] MEDS: INSULIN GLARGINE 100 UNIT/ML SUBCUT SCH (21:52)
[2020-02-23 02:44] VITALS: BP 79/39
== END 2020-02-23 00:33 | disposition expired | DRG 981 ==
LOC: SUPCPDRO 21:09 → N.ICU 21:09 → SUATTDRO 21:09 → N.CC 02-01 17:22 → N.2W 02-14 18:02 → N.2E 02-17 20:12 → N.TELES 02-18 14:09 → N.TELEN 02-21 09:12
PROVIDERS: ADMIT Internal Medicine; ATTEND Family Medicine